=== PATIENT | female | born 2000 | race Caucasian/White ===

== ENCOUNTER 2020-06-05 19:18 | Inpatient (IN) | payer OTHER, SELFPAY ==
[2020-06-05] VITALS (24 sets, daily range): BP systolic 125–161; BP diastolic 74–116; PULSE 66–89
[2020-06-05 11:09] LABS: Basophils Percent Auto 0.6 % (0.2-1.2); Eosinophils Absolute Auto 0.1 K/mm3 (0-0.3); Eosinophils Percent Auto 1.4 % (0-4.4); Hematocrit 31.3 % (37.0-47.0); Hemoglobin 10.3 g/dL (12.0-15.0); Immature Granulocyte Absolute 0.03 K/mm3 (0.00-0.031); Immature Granulocyte Percent A 0.4 % (0-0.5); Lymphocytes Absolute Auto 1.28 K/mm3 (0.9-3.2); Lymphocytes Percent Auto 17.8 % (18.3-44.2); Mean Corpuscular HGB Conc 32.9 g/dl (32-36); Mean Corpuscular Hemoglobin 29.3 pg (26-34); Mean Corpuscular Volume 88.9 fl (80-100); Mean Platelet Volume 12.5 fl (7.4-10.4); Monocytes Absolute Auto 0.5 K/mm3 (0.1-0.6); Monocytes Percent Auto 7.4 % (2.6-8.5); Neutrophils Absolute Auto 5.2 K/mm3 (1.3-6.7); Neutrophils Percent Auto 72.4 % (45.5-73.1); Platelet Count Result 134 k/mm3 (150-375); Red Blood Count 3.52 M/mm3 (4.2-5.4); Red Cell Distribution Width 13.3 % (11.5-14.5); White Blood Count 7.2 K/mm3 (4.5-10.0)
[2020-06-05 11:24] LABS: Alanine Aminotransferase 18 U/L (4-35); Albumin Level 3.2 g/dL (3.5-5.1); Alkaline Phosphatase 120 U/L (38-126); Aspartate Amino Transferase 20 U/L (14-36); Bilirubin,Total < 0.1 mg/dL (0.2-1.3); Blood Urea Nitrogen 13 mg/dL (7-17); Calcium 8.1 mg/dL (8.4-10.2); Carbon Dioxide 22 mmol/L (22-30); Chloride 108 mmol/L (98-107); Estimated Glomerular Filt Rate > 60; Glucose 93 mg/dL (65-105); Potassium 3.7 mmol/L (3.4-5.0); Sodium 136 mmol/L (137-145); Uric Acid 5.7 mg/dL (2.5-7.5)
[2020-06-05 12:33] LABS: Creatinine Urine 290.1 mg/dL; Total Protein Urine Random 9 mg/dL
--- NOTE | 2020-06-05 15:31 | PC.NURSE ---
1300- Spoke with Mandi Cronin CNM, labs reviewed and BP's reviewed. Orders to redraw labs at 6 hours from first draw. WIll evaluate after results come back.
[2020-06-05 16:53] LABS: Basophils Percent Auto 0.5 % (0.2-1.2); Eosinophils Absolute Auto 0.1 K/mm3 (0-0.3); Eosinophils Percent Auto 1.6 % (0-4.4); Hematocrit 31.3 % (37.0-47.0); Hemoglobin 10.3 g/dL (12.0-15.0); Immature Granulocyte Absolute 0.03 K/mm3 (0.00-0.031); Immature Granulocyte Percent A 0.4 % (0-0.5); Lymphocytes Absolute Auto 1.72 K/mm3 (0.9-3.2); Lymphocytes Percent Auto 21.5 % (18.3-44.2); Mean Corpuscular HGB Conc 32.9 g/dl (32-36); Mean Corpuscular Hemoglobin 29.3 pg (26-34); Mean Corpuscular Volume 88.9 fl (80-100); Mean Platelet Volume 12.5 fl (7.4-10.4); Monocytes Absolute Auto 0.7 K/mm3 (0.1-0.6); Monocytes Percent Auto 8.1 % (2.6-8.5); Neutrophils Absolute Auto 5.4 K/mm3 (1.3-6.7); Neutrophils Percent Auto 67.9 % (45.5-73.1); Platelet Count Result 144 k/mm3 (150-375); Red Blood Count 3.52 M/mm3 (4.2-5.4); Red Cell Distribution Width 13.4 % (11.5-14.5)
[2020-06-05 17:06] LABS: Alanine Aminotransferase 19 U/L (4-35); Albumin Level 3.2 g/dL (3.5-5.1); Alkaline Phosphatase 126 U/L (38-126); Aspartate Amino Transferase 21 U/L (14-36); Bilirubin,Total 0.1 mg/dL (0.2-1.3); Blood Urea Nitrogen 12 mg/dL (7-17); Calcium 8.4 mg/dL (8.4-10.2); Carbon Dioxide 23 mmol/L (22-30); Chloride 105 mmol/L (98-107); Estimated Glomerular Filt Rate > 60; Glucose 104 mg/dL (65-105); Potassium 3.5 mmol/L (3.4-5.0); Sodium 132 mmol/L (137-145); Uric Acid 5.5 mg/dL (2.5-7.5)
--- NOTE | 2020-06-05 17:31 | PC.NURSE ---
1706- Spoke with Mandi Cronin CNM, patient lab results reviewed. BPs' increased and patient reports a mild headache increasing. Orders to move patient to L&D at midnight for cervidil induction.
[2020-06-06] VITALS (104 sets, daily range): BP systolic 101–171; BP diastolic 66–116; PULSE 76–145; TEMP 37.1–37.8; O2SAT 97–100; BMI 42.3
--- NOTE | 2020-06-06 00:49 | LDADM ---
This patient, Jeferson Patel, was admitted to Labor/Delivery/Recovery 104 on 06/05/20 at 19:18. Plans for labor, pain management and were discussed with patient. Patient/family oriented to hospital policies and general routines including ID bracelet, bed and alarms, visiting hours, pain management, procedures, bathroom and other care routines, personal items, smoking policy, room service/diet and guest tray routines, infant security routines, and visiting hours. Patient/Family are encouraged to report perceived risks to care and to ask questions if they do not understand what they are told or what they should do. See OBIX for further documentation.
[2020-06-06] MEDS: DINOPROSTONE 10 MG VAG INSERT VAGINAL (01:00)
--- NOTE | 2020-06-06 02:33 | WPDANESEPP ---
Anes - Eval Pre Procedure Procedure: labor epidural Date/Time: 06/06/20 02:33 Surgeon: omi Pre Op Diagnosis: Hip Evaluation Patient Data Age: 20 Gender: F Height: 1.7 m Weight: 122.75 kg Last Vital Signs Temp 37.3 C 06/06/20 00:01 Pulse 81 06/06/20 02:31 BP 133/79 06/06/20 02:31 Allergies Allergy/AdvReac Type Severity Reaction Status Date / Time Penicillins Allergy Mild Verified 05/08/18 19:34 amoxicillin AdvReac Unknown Other Verified 10/23/18 19:18 Home Medications Medication Instructions Recorded Confirmed Type No Home Medications 06/05/20 06/05/20 History Laboratory Tests 06/05/20 06/05/20 06/05/20 10:57 10:57 10:57 WBC 7.2 K/mm3 K/mm3 (4.5-10.0) RBC 3.52 M/mm3 L M/mm3 (4.2-5.4) Hgb 10.3 g/dL L g/dL (12.0-15.0) Hct 31.3 % L % (37.0-47.0) MCV 88.9 fl fl (80-100) MCH 29.3 pg pg (26-34) MCHC 32.9 g/dl g/dl (32-36) RDW 13.3 % % (11.5-14.5) Plt Count 134 k/mm3 L k/mm3 (150-375) MPV 12.5 fl H fl (7.4-10.4) Immature Gran % (Auto) 0.4 % % (0-0.5) Neut % (Auto) 72.4 % % (45.5-73.1) Lymph % (Auto) 17.8 % L % (18.3-44.2) [place] % (Auto) 7.4 % % (2.6-8.5) Eos % (Auto) 1.4 % % (0-4.4) Baso % (Auto) 0.6 % % (0.2-1.2) Lymph # (Auto) 1.28 K/mm3 K/mm3 (0.9-3.2) [place] # (Auto) 0.5 K/mm3 K/mm3 (0.1-0.6) Eos # (Auto) 0.1 K/mm3 K/mm3 (0-0.3) Baso # (Auto) 0.0 K/mm3 K/mm3 (0.0-0.1) Abs Immat Gran (auto) 0.03 K/mm3 K/mm3 (0.00-0.031) Absolute Neuts (auto) 5.2 K/mm3 K/mm3 (1.3-6.7) Absolute Nucleated RBC 0.0 K/mm3 K/mm3 (0.0-0.012) Nucleated RBC % 0.0 % % (0.0-0.2) Sodium 136 mmol/L L mmol/L (137-145) Potassium 3.7 mmol/L mmol/L (3.4-5.0) Chloride 108 mmol/L H mmol/L (98-107) Carbon Dioxide 22 mmol/L mmol/L (22-30) BUN 13 mg/dL mg/dL (7-17) Creatinine 0.60 mg/dL L mg/dL (0.7-1.0) Estim Creat Clear Calc Not Reportable Estimated GFR > 60 (59 - ) Glucose 93 mg/dL mg/dL (65-105) Uric Acid 5.7 mg/dL mg/dL (2.5-7.5) Calcium 8.1 mg/dL L mg/dL (8.4-10.2) Total Bilirubin < 0.1 mg/dL L mg/dL (0.2-1.3) AST 20 U/L U/L (14-36) ALT 18 U/L U/L (4-35) Alkaline Phosphatase 120 U/L U/L (38-126) Total Protein 6.0 g/dL L g/dL (6.3-8.2) Albumin 3.2 g/dL L g/dL (3.5-5.1) U Random Total Protein 9 mg/dL mg/dL Urine Creatinine 290.1 mg/dL mg/dL RPR Blood Type Antibody Screen 06/05/20 06/05/20 06/06/20 16:45 16:46 01:04 WBC 8.0 K/mm3 K/mm3 (4.5-10.0) RBC 3.52 M/mm3 L M/mm3 (4.2-5.4) Hgb 10.3 g/dL L g/dL (12.0-15.0) Hct 31.3 % L % (37.0-47.0) MCV 88.9 fl fl (80-100) MCH 29.3 pg pg (26-34) MCHC 32.9 g/dl g/dl (32-36) RDW 13.4 % % (11.5-14.5) Plt Count 144 k/mm3 L k/mm3 (150-375) MPV 12.5 fl H fl (7.4-10.4) Immature Gran % (Auto) 0.4 % % (0-0.5) Neut % (Auto) 67.9 % % (45.5-73.1) Lymph % (Auto) 21.5 % % (18.3-44.2) [place] % (Auto) 8.1 % % (2.6-8.5) Eos % (Auto) 1.6 % % (0-4.4) Baso % (Auto) 0.5 % % (0.2-1.2) Lymph # (Auto) 1.72 K/mm3 K/mm3 (0.9-3.2) [place] # (Auto) 0.7 K/mm3 H K/mm3 (0.1-0.6) Eos # (Auto) 0.1 K/mm3 K/mm3 (0-0.3) Baso # (Auto) 0.0 K/mm3 K/mm3 (0.0-0.1) Abs Immat Gran (auto) 0.03 K/mm3 K/mm3 (0.00-0.031) Absolute Neuts (auto) 5.4 K/mm3 K/mm3 (1.3-6.7) Absolute Nucleated RBC 0.0 K/mm3 K/mm3 (0.0-0.012) Nucleated R
[2020-06-06 03:58] LABS: Add Urine Microscopic? YES; Appearance Urine Turbid (Clear); Bacteria Urine Trace /hpf; Bilirubin Urine Negative (Negative); Blood Urine 2+ (Negative); Color Urine Yellow (Yellow); Glucose Urine UA Negative (Negative); Ketones Urine Negative (Negative); Leukocyte Esterase Ur Trace LEU/UL (NEGATIVE); Mucus Urine Few /lpf; Nitrate Urine Negative (Negative); Protein Urine Negative (Negative); Specific Grav Ur 1.018 (1.001-1.035); Squamous Epithelial Cell Urine Occasional /hpf (Few); Urobilinogen Urine Negative mg/dL (<2.0)
[2020-06-06] MEDS: LACTATED RINGERS 1,000 ML 125 ML IV CONT ×2 (06:53→19:37)
[2020-06-06] MEDS: CLINDAMYCIN 900 MG/NS 50 ML 900 MG/50 ML PIGGYBACK 50 MG IVPB ×2 (06:53→14:53)
[2020-06-06 07:25] LABS: Rapid Plasma Reagin Non-Reactive (NonReactive)
--- NOTE | 2020-06-06 07:25 | WPDOBADMIT ---
Obstetrics - Admit Note Admission Note: record reviewed. No pertinent additions to the history and/or any subsequent changes in the physical findings that are not consistent with the expected course of the were found. Pt admitted to LD last night with diagnosis of GHTN, cervadil placed around 0100. Pt susi well Additions to the history and/or subsequent changes in the physical findings follow. None.
[2020-06-06] MEDS: FAMOTIDINE 20 MG/2 ML VIAL IV PUSH (12:41)
[2020-06-06] MEDS: OXYTOCIN 30 UNITS/NS 500 ML 30 UNITS/500 ML BAG 6 UNITS IV CONT (13:33)
[2020-06-06 16:33] LABS: Basophils Percent Auto 0.2 % (0.2-1.2); Eosinophils Absolute Auto 0.1 K/mm3 (0-0.3); Eosinophils Percent Auto 0.7 % (0-4.4); Hematocrit 33.1 % (37.0-47.0); Immature Granulocyte Absolute 0.02 K/mm3 (0.00-0.031); Immature Granulocyte Percent A 0.2 % (0-0.5); Lymphocytes Absolute Auto 1.37 K/mm3 (0.9-3.2); Lymphocytes Percent Auto 15.4 % (18.3-44.2); Mean Corpuscular HGB Conc 33.2 g/dl (32-36); Mean Corpuscular Hemoglobin 29.4 pg (26-34); Mean Corpuscular Volume 88.5 fl (80-100); Mean Platelet Volume 12.4 fl (7.4-10.4); Monocytes Absolute Auto 0.6 K/mm3 (0.1-0.6); Monocytes Percent Auto 7.1 % (2.6-8.5); Neutrophils Absolute Auto 6.8 K/mm3 (1.3-6.7); Neutrophils Percent Auto 76.4 % (45.5-73.1); Platelet Count Result 174 k/mm3 (150-375); Red Blood Count 3.74 M/mm3 (4.2-5.4); Red Cell Distribution Width 13.4 % (11.5-14.5); White Blood Count 8.9 K/mm3 (4.5-10.0)
[2020-06-06 16:44] LABS: Uric Acid 5.3 mg/dL (2.5-7.5)
[2020-06-06 17:29] LABS: Alanine Aminotransferase 22 U/L (4-35); Albumin Level 3.5 g/dL (3.5-5.1); Alkaline Phosphatase 144 U/L (38-126); Aspartate Amino Transferase 25 U/L (14-36); Bilirubin,Total 0.2 mg/dL (0.2-1.3); Blood Urea Nitrogen 9 mg/dL (7-17); Calcium 8.3 mg/dL (8.4-10.2); Carbon Dioxide 21 mmol/L (22-30); Chloride 107 mmol/L (98-107); Estimated CRCL calculation 203 ml/min; Estimated Glomerular Filt Rate > 60; Glucose 80 mg/dL (65-105); Sodium 134 mmol/L (137-145)
--- NOTE | 2020-06-06 18:01 | PM.OBPNLAB ---
Pain Control Date/time seen: 06/06/20 18:01 FHR category 1, SVE 3/80/-3, AROm large amount of clear odorless fluid BP elevated, plan labetalol if severe range and then if persists plan magnesium sulfate, consulted with Dr. Cast.
[2020-06-06] MEDS: AMPICILLIN 2 GM/NS 100 ML 2 GM/100 ML BAG IVPB (18:36)
--- NOTE | 2020-06-06 22:02 | PM.OBTRLD ---
OB - Triage/Final Diagnosis Visit Information Date of evaluation: 06/06/20 Evaluation Laboratory results: Laboratory Tests 06/05/20 06/05/20 06/05/20 10:57 10:57 10:57 WBC 7.2 RBC 3.52 L Hgb 10.3 L Hct 31.3 L MCV 88.9 MCH 29.3 MCHC 32.9 RDW 13.3 Plt Count 134 L MPV 12.5 H Immature Gran % (Auto) 0.4 Neut % (Auto) 72.4 Lymph % (Auto) 17.8 L [place] % (Auto) 7.4 Eos % (Auto) 1.4 Baso % (Auto) 0.6 Lymph # (Auto) 1.28 [place] # (Auto) 0.5 Eos # (Auto) 0.1 Baso # (Auto) 0.0 Abs Immat Gran (auto) 0.03 Absolute Neuts (auto) 5.2 Absolute Nucleated RBC 0.0 Nucleated RBC % 0.0 Sodium Potassium Chloride Carbon Dioxide BUN Creatinine Estim Creat Clear Calc Estimated GFR Glucose Uric Acid Calcium Total Bilirubin AST ALT Alkaline Phosphatase Total Protein Albumin Urine Color Yellow Urine Appearance Turbid H Urine pH 5.0 Ur Specific [place] 1.018 Urine Protein Negative Urine Glucose (UA) Negative Urine Ketones Negative Ur Blood (Man) 2+ H Urine Nitrate Negative Urine Bilirubin Negative Urine Urobilinogen Negative Ur Leukocyte Esterase Trace H Urine RBC 3-5 H Urine WBC 4-6 H Ur Squamous Epith Cells Occasional Urine Bacteria Trace Urine Mucus Few H U Random Total Protein 9 Urine Creatinine 290.1 RPR Blood Type Antibody Screen 06/05/20 06/05/20 06/05/20 10:57 16:45 16:46 WBC 8.0 RBC 3.52 L Hgb 10.3 L Hct 31.3 L MCV 88.9 MCH 29.3 MCHC 32.9 RDW 13.4 Plt Count 144 L MPV 12.5 H Immature Gran % (Auto) 0.4 Neut % (Auto) 67.9 Lymph % (Auto) 21.5 [place] % (Auto) 8.1 Eos % (Auto) 1.6 Baso % (Auto) 0.5 Lymph # (Auto) 1.72 [place] # (Auto) 0.7 H Eos # (Auto) 0.1 Baso # (Auto) 0.0 Abs Immat Gran (auto) 0.03 Absolute Neuts (auto) 5.4 Absolute Nucleated RBC 0.0 Nucleated RBC % 0.0 Sodium 136 L 132 L Potassium 3.7 3.5 Chloride 108 H 105 Carbon Dioxide 22 23 BUN 13 12 Creatinine 0.60 L 0.60 L Estim Creat Clear Calc Not Reportable Not Reportable Estimated GFR > 60 > 60 Glucose 93 104 Uric Acid 5.7 5.5 Calcium 8.1 L 8.4 Total Bilirubin < 0.1 L 0.1 L AST 20 21 ALT 18 19 Alkaline Phosphatase 120 126 Total Protein 6.0 L 6.0 L Albumin 3.2 L 3.2 L Urine Color Urine Appearance Urine pH Ur Specific [place] Urine Protein Urine Glucose (UA) Urine Ketones Ur Blood (Man) Urine Nitrate Urine Bilirubin Urine Urobilinogen Ur Leukocyte Esterase Urine RBC Urine WBC Ur Squamous Epith Cells Urine Bacteria Urine Mucus U Random Total Protein Urine Creatinine RPR Blood Type Antibody Screen 06/06/20 06/06/20 06/06/20 01:04 01:04 16:28 WBC RBC Hgb Hct MCV MCH MCHC RDW Plt Count MPV Immature Gran % (Auto) Neut % (Auto) Lymph % (Auto) [place] % (Auto) Eos % (Auto) Baso % (Auto) Lymph # (Auto) [place] # (Auto) Eos # (Auto) Baso # (Auto) Abs Immat Gran (auto) Absolute Neuts (auto) Absolute Nucleated RBC Nucleated RBC % Sodium 134 L Potassium 4.0 Chloride 107 Carbon Dioxide 21 L BUN 9 Creatinine 0.50 L Estim Creat Clear Calc 203 Estimated GFR > 60 Glucose 80 Uric Acid Calcium 8.3 L Total Bilirubin 0.2 AST 25 ALT 22 Alkaline Phosphatase 144 H Total Protein 6.0 L Albumin 3.5 Urine Color Urine Appearance Urine pH Ur Specific [place] Urine Protein Urine Glucose (UA) Urine Ketones Ur Blood (Man) Urine Nitrate Urine Bilirubin Urine Urobilinogen Ur Leukocyte Esterase Urine RBC Urine WBC Ur Squamous Epith Cells Urine Bacteria Urine Mucus U Random Total Protein
--- NOTE | 2020-06-06 22:03 | PM.OBPRVD ---
OB - Delivery Note Procedure Delivery date: 06/06/20 Procedure: vaginal delivery events: Induced HTN Intrapartal events: None and Febrile Induction method: AROM and per pitocin protocol Delivery monitor: external FHT and external uterine Route of delivery: Laceration description: Perineal - 1st Degree Delivery repair: vicryl Specimen: Yes Estimated blood loss (mL): 100 Anesthesia type: Epidural Disposition: other () Baby Date of : 06/06/20 Time of : 21:48 Weeks of gestation at delivery: 37 Infant gender: Male Weight (pounds): 7 Weight (ounces): 1 presentation: vertex position: Left Occiput Anterior Placenta delivery description: Spontaneous cord vessel description: 3 Vessels and Clamped/Cut score one minute: 8 score five minutes: 9 Narrative: baby skin to skin, mother and baby stable condition
[2020-06-06] MEDS: OXYTOCIN 30 UNITS/NS 500 ML 30 UNITS/500 ML BAG 125 UNITS IV CONT (22:19)
[2020-06-07 00:01] VITALS: BP 149/89; PULSE 102
[2020-06-07 00:15] VITALS: BP 150/91; PULSE 97
[2020-06-07] MEDS: WITCH HAZEL 40 PADS 1 PAD TOPICAL (00:24)
[2020-06-07] MEDS: IBUPROFEN 600 MG TABLET PO ×3 (00:24→20:02)
[2020-06-07] MEDS: BENZOCAINE 20% AER SPR (*SP) 56 GM CAN 1 SPRAY TOPICAL (00:25)
[2020-06-07 00:45] VITALS: BP 148/84; PULSE 98; RESP 14; TEMP 37.4; O2SAT 97
[2020-06-07 05:34] LABS: Hemoglobin 10.2 g/dL (12.0-15.0)
[2020-06-07] MEDS: MULTIVIT/MIN/PREN/FOL AC/IRON TABLET 1 TAB PO (07:37)
[2020-06-07] MEDS: DOCUSATE SODIUM 100 MG CAPSULE PO (07:38)
--- NOTE | 2020-06-07 08:05 | PM.OBPNVD ---
OB - PN: Subj Subjective Date/time seen: 06/07/20 08:05 Pt denies h/a, v/d, or e/p. OB - PN: Obj Data Labs CBC & Chem 7: 06/07/20 04:33 06/06/20 16:28 Labs: Laboratory Results - last 24 hr 06/06/20 06/06/20 06/06/20 16:28 16:28 16:28 WBC 8.9 RBC 3.74 L Hgb 11.0 L Hct 33.1 L MCV 88.5 MCH 29.4 MCHC 33.2 RDW 13.4 Plt Count 174 MPV 12.4 H Immature Gran % (Auto) 0.2 Neut % (Auto) 76.4 H Lymph % (Auto) 15.4 L [place] % (Auto) 7.1 Eos % (Auto) 0.7 Baso % (Auto) 0.2 Lymph # (Auto) 1.37 [place] # (Auto) 0.6 Eos # (Auto) 0.1 Baso # (Auto) 0.0 Abs Immat Gran (auto) 0.02 Absolute Neuts (auto) 6.8 H Absolute Nucleated RBC 0.0 Nucleated RBC % 0.0 Sodium 134 L Potassium 4.0 Chloride 107 Carbon Dioxide 21 L BUN 9 Creatinine 0.50 L Estim Creat Clear Calc 203 Estimated GFR > 60 Glucose 80 Uric Acid 5.3 Calcium 8.3 L Total Bilirubin 0.2 AST 25 ALT 22 Alkaline Phosphatase 144 H Total Protein 6.0 L Albumin 3.5 06/07/20 04:33 WBC RBC Hgb 10.2 L Hct 31.0 L MCV MCH MCHC RDW Plt Count MPV Immature Gran % (Auto) Neut % (Auto) Lymph % (Auto) [place] % (Auto) Eos % (Auto) Baso % (Auto) Lymph # (Auto) [place] # (Auto) Eos # (Auto) Baso # (Auto) Abs Immat Gran (auto) Absolute Neuts (auto) Absolute Nucleated RBC Nucleated RBC % Sodium Potassium Chloride Carbon Dioxide BUN Creatinine Estim Creat Clear Calc Estimated GFR Glucose Uric Acid Calcium Total Bilirubin AST ALT Alkaline Phosphatase Total Protein Albumin OB - PN A/P Plan day: 1 Plan: routine care Time Spent With Patient Time: Total time spent is greater than 50% in coordination of care (as documented) at patient's floor/unit and/or counseling patient: Review of Systems Review of Systems: All systems reviewed & are unremarkable except as noted in HPI and below Exam Narrative: Exam Narrative: Fundus firm and vaginal flow controlled. DTR normal. 3+ lower ext edema. Const: General: comfortable Chest: Breast/axilla inspection: normal inspection of the breasts Resp: Effort & Inspection: normal respiratory effort Psych: Appearance: grossly normal Affect: normal affect Attitude: cooperative Judgement: Good judgement present (Psych)
[2020-06-07 08:30] VITALS: BP 140/89; PULSE 84; RESP 18; TEMP 37; O2SAT 98
--- NOTE | 2020-06-07 09:00 | WPDANLDPN2 ---
Anes-Prog Note L&D Date/Time: 06/07/20 09:00 Comfortable throughout: labor and delivery Neuraxial method: epidural Epidural/Spinal procedure site: clean & non-tender Neuro status: Neuro function grossly intact. Cardiovascular status: normal Respiratory status: normal Airway patency: baseline Mental status: baseline Post-Op hydration status: normal Vital Signs: Last Vital Signs Temp 99.3 F 06/07/20 00:45 Pulse 98 06/07/20 00:45 Resp 14 06/07/20 00:45 BP 148/84 H 06/07/20 00:45 Pulse Ox 97 06/07/20 00:45 I/O: Intake & Output 06/06/20 06/07/20 06/07/20 23:59 07:59 15:59 Intake Total 900 500 Output Total 148 Balance 900 352 Post-procedural complaints: none Patient feedback: Patient satisfied with anesthetic care.
--- NOTE | 2020-06-07 13:30 | PC.NURSE ---
Mother called out for assist with feeding. Mother reports infant has had difficulties with latching, she used a shield a few times and has a tight frenulum. Infant is now sleepy. Reviewed infant feeding cues, frequencies, duration of feedings, feeding elimination flow sheet, and signs of adequate intake. Demonstrated stimulation techniques to wake infant for feeding. Assisted with infant to breast. Reviewed positioning/alignment in football , holding breast in C hold and guided asymmetrical latch on. Discussed rational for each. Several attempts before was able to latch correctly. Infant nursed eagerly, with steady draws and occasional swallowing noted. Reviewed signs of a correct latch, effective nursing and suck swallow ratio. appears to be able to latch deeply with tight frenulum for this feeding. Demonstrated how to adjust latch more deeply while feeding. Infant was able to maintain latch without discomfort to mother. Nipple care reviewed. Suggested to continue to stimulate to keep infant awake and effectively feeding for increased intake and assisting maintaining deep latch. Instructed mother to call out for RN assistance if she is unable to latch for feeding or she has discomfort with nursing. Instructed feeding should be initiated three hours from start of last feeding or if feeding cues are noted before. Mother voiced understanding of information shared.
[2020-06-07 20:05] VITALS: BP 155/96; PULSE 84; RESP 14; TEMP 36.8; O2SAT 100
[2020-06-08 07:24] VITALS: BP 155/88; PULSE 91; RESP 16; TEMP 37.1; O2SAT 99
[2020-06-08] MEDS: MULTIVIT/MIN/PREN/FOL AC/IRON TABLET 1 TAB PO (07:25)
[2020-06-08] MEDS: DOCUSATE SODIUM 100 MG CAPSULE PO ×2 (07:25→16:15)
[2020-06-08] MEDS: ACETAMINOPHEN 325 MG TABLET 650 MG PO ×2 (07:26→16:16)
[2020-06-08] MEDS: IBUPROFEN 600 MG TABLET PO ×2 (07:27→16:16)
--- NOTE | 2020-06-08 07:55 | P.PNOB_ITS ---
OB - PN: Subj Subjective Date/time seen: 06/08/20 07:55 OB - PN: Obj Data Labs CBC & Chem 7: 06/07/20 04:33 06/06/20 16:28 Labs: Laboratory Results - last 24 hr 06/05/20 06/05/20 06/06/20 16:45 16:46 16:28 WBC 8.0 8.9 RBC 3.52 L 3.74 L Hgb 10.3 L 11.0 L Hct 31.3 L 33.1 L MCV 88.9 88.5 MCH 29.3 29.4 MCHC 32.9 33.2 RDW 13.4 13.4 Plt Count 144 L 174 MPV 12.5 H 12.4 H Immature Gran % (Auto) 0.4 0.2 Neut % (Auto) 67.9 76.4 H Lymph % (Auto) 21.5 15.4 L [place] % (Auto) 8.1 7.1 Eos % (Auto) 1.6 0.7 Baso % (Auto) 0.5 0.2 Lymph # (Auto) 1.72 1.37 [place] # (Auto) 0.7 H 0.6 Eos # (Auto) 0.1 0.1 Baso # (Auto) 0.0 0.0 Abs Immat Gran (auto) 0.03 0.02 Absolute Neuts (auto) 5.4 6.8 H Absolute Nucleated RBC 0.0 0.0 Nucleated RBC % 0.0 0.0 Sodium 132 L Potassium 3.5 Chloride 105 Carbon Dioxide 23 BUN 12 Creatinine 0.60 L Estimated GFR > 60 Glucose 104 Uric Acid 5.5 Calcium 8.4 Total Bilirubin 0.1 L AST 21 ALT 19 Alkaline Phosphatase 126 Total Protein 6.0 L Albumin 3.2 L OB - PN A/P Plan day: 2 Plan: routine care Comments: BP remain elevated. Check labs. Time Spent With Patient Time: Total time spent is greater than 50% in coordination of care (as documented) at patient's floor/unit and/or counseling patient: Review of Systems Review of Systems: Narrative: Pt feeling well. Denies h/a, v/d, or e/p. All systems reviewed & are unremarkable except as noted in HPI and below Exam Narrative: Exam Narrative: Fundus firm and vaginal flow controlled. Lower ext edema 2+ and improving. Reflexes normal. Const: General: comfortable Chest: Breast/axilla inspection: normal inspection of the breasts Resp: Effort & Inspection: normal respiratory effort Cardio: Rate: regular rate GI: Auscultation: normal bowel sounds Psych: Appearance: grossly normal Affect: normal affect Attitude: cooperative Judgement: Good judgement present (Psych)
[2020-06-08 09:14] LABS: Hematocrit 28.9 % (37.0-47.0); Hemoglobin 9.5 g/dL (12.0-15.0); Immature Platelet Fraction Pct 7.3 % (0.9-11.2); Mean Corpuscular HGB Conc 32.9 g/dl (32-36); Mean Corpuscular Hemoglobin 29.6 pg (26-34); Mean Platelet Volume 11.8 fl (7.4-10.4); Platelet Count Result 133 k/mm3 (150-375); Red Blood Count 3.21 M/mm3 (4.2-5.4); Red Cell Distribution Width 13.6 % (11.5-14.5); White Blood Count 6.2 K/mm3 (4.5-10.0)
[2020-06-08 09:24] LABS: Alanine Aminotransferase 24 U/L (4-35); Albumin Level 3.2 g/dL (3.5-5.1); Alkaline Phosphatase 113 U/L (38-126); Aspartate Amino Transferase 28 U/L (14-36); Bilirubin,Total 0.2 mg/dL (0.2-1.3); Blood Urea Nitrogen 7 mg/dL (7-17); Calcium 8.7 mg/dL (8.4-10.2); Carbon Dioxide 23 mmol/L (22-30); Chloride 107 mmol/L (98-107); Estimated CRCL calculation 173 ml/min; Estimated Glomerular Filt Rate > 60; Glucose 115 mg/dL (65-105); Potassium 3.6 mmol/L (3.4-5.0); Sodium 136 mmol/L (137-145); Uric Acid 5.9 mg/dL (2.5-7.5)
--- NOTE | 2020-06-08 10:05 | PC.NURSE ---
Mother called out for assist with feeding. Mother reports tenderness during feedings. is now sleepy after circumcision and is concerned is getting enough. Reviewed feeding cues, frequencies, duration of feedings, feeding elimination flow sheet, and signs of adequate intake. Demonstrated stimulation techniques to wake for feeding. Assisted with infant to breast. Reviewed positioning/alignment in cross cradle, holding breast in U hold and guided asymmetrical latch on. Discussed rational for each. was able to latch correctly. made little effort to suckle and nurse. Attempt for 15 minutes. Suggested skin to skin and attempt again in 30 min.
--- NOTE | 2020-06-08 10:40 | PC.NURSE ---
Assisted with infant to breast. Infant was able to latch correctly. nursed sleepily for short bursts, mother was able to stimulate into bursts of eagerly suckling. Advised mother to continue with feeding for 30 minutes and report the times she feels infant nurses. Requested mother call out in 30 minutes to report to primary RN.
[2020-06-08 15:40] LABS: Basophils Absolute Auto 0.1 K/mm3 (0.0-0.1); Basophils Percent Auto 0.8 % (0.2-1.2); Eosinophils Absolute Auto 0.2 K/mm3 (0-0.3); Eosinophils Percent Auto 2.4 % (0-4.4); Hematocrit 29.3 % (37.0-47.0); Hemoglobin 9.7 g/dL (12.0-15.0); Immature Granulocyte Absolute 0.03 K/mm3 (0.00-0.031); Immature Granulocyte Percent A 0.5 % (0-0.5); Lymphocytes Absolute Auto 1.81 K/mm3 (0.9-3.2); Lymphocytes Percent Auto 27.3 % (18.3-44.2); Mean Corpuscular HGB Conc 33.1 g/dl (32-36); Mean Corpuscular Hemoglobin 29.6 pg (26-34); Mean Corpuscular Volume 89.3 fl (80-100); Mean Platelet Volume 12.1 fl (7.4-10.4); Monocytes Absolute Auto 0.4 K/mm3 (0.1-0.6); Monocytes Percent Auto 6.6 % (2.6-8.5); Neutrophils Absolute Auto 4.1 K/mm3 (1.3-6.7); Neutrophils Percent Auto 62.4 % (45.5-73.1); Platelet Count Result 154 k/mm3 (150-375); Red Blood Count 3.28 M/mm3 (4.2-5.4); Red Cell Distribution Width 13.6 % (11.5-14.5); White Blood Count 6.6 K/mm3 (4.5-10.0)
[2020-06-08 15:50] LABS: Alanine Aminotransferase 24 U/L (4-35); Albumin Level 3.4 g/dL (3.5-5.1); Alkaline Phosphatase 110 U/L (38-126); Aspartate Amino Transferase 27 U/L (14-36); Bilirubin,Total < 0.1 mg/dL (0.2-1.3); Blood Urea Nitrogen 8 mg/dL (7-17); Calcium 8.3 mg/dL (8.4-10.2); Carbon Dioxide 23 mmol/L (22-30); Chloride 107 mmol/L (98-107); Estimated CRCL calculation 173 ml/min; Estimated Glomerular Filt Rate > 60; Glucose 94 mg/dL (65-105); Sodium 137 mmol/L (137-145); Uric Acid 5.7 mg/dL (2.5-7.5)
[2020-06-08 16:15] VITALS: BP 151/104; PULSE 80
[2020-06-08 20:10] VITALS: BP 152/94; PULSE 90; RESP 18; TEMP 37.1; O2SAT 99
[2020-06-09] MEDS: ACETAMINOPHEN 325 MG TABLET 650 MG PO (00:27)
[2020-06-09] MEDS: IBUPROFEN 600 MG TABLET PO ×2 (00:27→08:50)
--- NOTE | 2020-06-09 07:43 | PM.OBPNVD ---
OB - PN: Subj Subjective Date/time seen: 06/09/20 07:43 Patient comments: no complaints baby status: doing well OB - PN: Obj Data Labs CBC & Chem 7: 06/08/20 15:30 06/08/20 15:30 Labs: Laboratory Results - last 24 hr 06/08/20 06/08/20 06/08/20 09:06 09:06 15:30 WBC 6.2 6.6 RBC 3.21 L 3.28 L Hgb 9.5 L 9.7 L Hct 28.9 L 29.3 L MCV 90.0 89.3 MCH 29.6 29.6 MCHC 32.9 33.1 RDW 13.6 13.6 Plt Count 133 L 154 MPV 11.8 H 12.1 H Immature Gran % (Auto) 0.5 Neut % (Auto) 62.4 Lymph % (Auto) 27.3 [place] % (Auto) 6.6 Eos % (Auto) 2.4 Baso % (Auto) 0.8 Lymph # (Auto) 1.81 [place] # (Auto) 0.4 Eos # (Auto) 0.2 Baso # (Auto) 0.1 Abs Immat Gran (auto) 0.03 Absolute Neuts (auto) 4.1 Absolute Nucleated RBC 0.0 Nucleated RBC % 0.0 % Immature Plt Fraction 7.3 Sodium 136 L Potassium 3.6 Chloride 107 Carbon Dioxide 23 BUN 7 Creatinine 0.60 L Estim Creat Clear Calc 173 Estimated GFR > 60 Glucose 115 H Uric Acid 5.9 Calcium 8.7 Total Bilirubin 0.2 AST 28 ALT 24 Alkaline Phosphatase 113 Total Protein 6.0 L Albumin 3.2 L 06/08/20 15:30 WBC RBC Hgb Hct MCV MCH MCHC RDW Plt Count MPV Immature Gran % (Auto) Neut % (Auto) Lymph % (Auto) [place] % (Auto) Eos % (Auto) Baso % (Auto) Lymph # (Auto) [place] # (Auto) Eos # (Auto) Baso # (Auto) Abs Immat Gran (auto) Absolute Neuts (auto) Absolute Nucleated RBC Nucleated RBC % % Immature Plt Fraction Sodium 137 Potassium 4.0 Chloride 107 Carbon Dioxide 23 BUN 8 Creatinine 0.60 L Estim Creat Clear Calc 173 Estimated GFR > 60 Glucose 94 Uric Acid 5.7 Calcium 8.3 L Total Bilirubin < 0.1 L AST 27 ALT 24 Alkaline Phosphatase 110 Total Protein 6.0 L Albumin 3.4 L OB - PN A/P Plan day: 2 Plan: discharge home Comments: some elevated blood pressures, labs stable, plan f/u on friday in office for blood pressure check, precautions to be given, pt has hospital f/u tomorrow Time Spent With Patient Time: Total time spent is greater than 50% in coordination of care (as documented) at patient's floor/unit and/or counseling patient: Review of Systems Review of Systems: All systems reviewed & are unremarkable except as noted in HPI and below Exam Const: General: comfortable Resp: Effort & Inspection: normal respiratory effort Psych: Appearance: grossly normal Affect: normal affect Attitude: cooperative Judgement: Good judgement present (Psych)
[2020-06-09 08:20] VITALS: BP 141/90; PULSE 72; RESP 18; TEMP 36.9; O2SAT 99
[2020-06-09] MEDS: DOCUSATE SODIUM 100 MG CAPSULE PO (08:49)
[2020-06-09] MEDS: POLYSACCHARIDE IRON COMPLEX 150 MG CAPSULE PO (08:49)
[2020-06-09] MEDS: MULTIVIT/MIN/PREN/FOL AC/IRON TABLET 1 TAB PO (08:50)
[2020-06-10 10:19] VITALS: BP 179/110; RESP 20; TEMP 36.6; O2SAT 100
--- NOTE | 2020-06-13 18:02 | PM.OBDSVD ---
DS: Admitting Diagnosis Admitting Diagnosis Admitting Diagnosis: Encounter for supervision of normal , unspecified, third trimester OB - DS: Summary OB Procedures : None OB Procedures Intrapartum: Spontaneous Vag Delivery OB Procedures: : None Time Spent with Patient Time attestation: Total time spent providing and/or coordinating discharge services: DS: Data Data Completed and Pending Completed studies during hospitalization: Pending at discharge 06/06/20 21:53 Surgical [PTH] Routine Discharge Plan Discharge Attending physician on discharge: Anuj Cast Consulting providers: Heather Cronin ; Leidy Keating Discharging Clinician: Leidy Keating Patient Disposition: Home, Self-Care Activity: pelvic rest Diet: regular Discharge Instructions: Education: Mom and Baby Guide Given to: Patient Follow-Up: Call your delivering provider's office for an appointment to be seen in: Friday06/12/2020 Mom and baby should come to the [facility] for the follow-up appointment. Appointment Date/Time: Friday06/10/2020 at 10:00 am Call [phone] if you are unable to keep your appointment time. BREAST CARE: 1. Wear a snug supportive bra. 2. For engorgement discomfort: Breast Feeding: A. Apply warm moist washcloths B. Express milk as needed to relieve engorgement C. Wear loose clothing 3. For sore nipples: A. Identify correct latch-on B. Apply warm moist washcloths before and after nursing C. Air dry nipples after nursing D. May apply Lansinoh cream to nipples EPISIOTOMY/PERINEAL CARE: 1. Until bleeding stops, use your nas bottle after urinating 2. Change your pad frequently throughout the day 3. You may take sitz baths several times a day (fill your bathtub with warm water and soak for 20 minutes.) Do NOT bathe in the water 4. No tub baths until seen by your physician - You may shower ACTIVITY: 1. Rest as much as possible. 2. Do not exercise or lift anything heavier than your baby (such as laundry or other children.) 3. Avoid stairs or driving as much as possible. 4. Do not put anything into the vagina. No douching, tampons, or sexual activity until seen by physician. NOTIFY PHYSICIAN IF YOU HAVE ANY QUESTIONS OR IF ANY OF THE FOLLOWING SYMPTOMS OCCUR: 1. If your episiotomy or incision becomes red, swollen, or more painful than what you have experienced in the hospital. 2. If your vaginal bleeding becomes foul smelling. 3. If your vaginal bleeding becomes more heavy than a period or if your bleeding changes from pink to bright red. However, you may pass an occasional walnut-sized clot once or twice for the first week . 4. If you experience a sharp, shooting pain in you calves. 5. If you discover a hard, reddened area on your breast or if you experience flu-like symptoms. DIET: 1. Eat regular, well-balanced meals. 2. Drink plenty of fluids daily. If , drink to thirst. Follow-up/Referrals: Leidy Keating CNM [Certified Nurse Route Carrier] - 4 Weeks (f/u on 06/12 in office for blood pressure check) Discharge Medications: New ibuprofen 600 mg Tablet 600 mg PO Q6H PRN (Reason: Cramping) Qty: 30 RF: 0 No Action PNV cmb#95-ferrous fumarate-FA [] 28 mg iron- 800 mcg Tablet 1 tablet PO DAILY RF: 0 labetalol 100 mg Tablet 200 mg PO Q12H 14 Days Qty: 56 RF: 0 Dermoplast (with menthol) 20-0.5 % Aerosol 1 spray topical PRN PRN (Reason: Perineal Discomfort) RF: 0 acetaminophen 500 mg Tablet 1,000 mg PO Q6H PRN (Reason: Pain) RF: 0 Lwf-F-Fafpmz Cream 1 applic topical PRN PRN (Reason: Comfort) RF: 0 Preparation H (Witch Batsheva) 50 % Pads, Medicated 1 pad topical PRN PRN (Reason: Perineal Discomfort) RF: 0 Date of admission: 06/05/20 19:18 Primary Care Provider: Nii,Shirley Watts
== END 2020-06-09 12:20 | disposition home or self-care (01) | DRG 807 ==
LOC: ANHLDR 06-06 00:30 → ANHOB2 06-09 07:48 → ANHLDR 07-19 15:00 → ANHOB2 07-19 15:00 → ANHOBOP 07-19 15:00 → ANHOBPP 07-19 15:00
PROVIDERS: Advanced Practice Midwife; Admitting Provider Obstetrics & Gynecology; PCP Family Medicine; Visit Provider Obstetrics & Gynecology
DX: O13.4 Gestational [pregnancy-induced] hypertension without significant proteinuria, complicating childbirth (principal); Z37.0 Single live birth; Z3A.37 37 weeks gestation of pregnancy; O99.824 Streptococcus B carrier state complicating childbirth; O70.0 First degree perineal laceration during delivery
CPT/HCPCS: 36415; 59025; 80053; 81001; 82570; 84156; 84550; 85014; 85018; 85025; 85027; 85055; 86592; 86850; 86900; 86901; 87086; 87088; 88307; 99199; A9270; J0290; J2590; J2795; J7120

== ENCOUNTER 2020-06-10 10:37 | Observation (INO) | payer OTHER, SELFPAY ==
[2020-06-10] VITALS (58 sets, daily range): BP systolic 128–174; BP diastolic 76–107; PULSE 64–93; RESP 16–22; TEMP 36.6–37; O2SAT 98–100; BMI 39.0
--- NOTE | 2020-06-10 10:55 | OBADM ---
This patient, Jeferson Patel, admitted to the OB room 116 for observation for hypertension at 1036.. Pt had severe hypertension on BP's done at followup appointment. Pt taken to room per wheelchair and allowed to void. Assisted into a gown and bed. Patient/family oriented to hospital policies and general routines including ID bracelet, bed and alarms, visiting hours, pain management, procedures, bathroom and other care routines, personal items, smoking policy, room service/diet, and visiting hours. Patient/Family are encouraged to report perceived risks to care and to ask questions if they do not understand what they are told or what they should do. Ramona FERRERM called to check on pt. Informed I was just now getting her first BP as I was waiting 5 mins from when she got out of the bathroom. CNM informed BP 168/107. Pt denies headache, visual disturbance, epigastric/RUQ pain, but has 2+ pitting edema in lower legs and reflexes are 3+ and no clonus. CNM will call Dr. Cast and call me back with orders.
--- NOTE | 2020-06-10 10:59 | PC.NURSE ---
Ramona Keating CNM called back with orders for Magnesium Sulfate and PO Labetalol
[2020-06-10 11:31] LABS: Basophils Absolute Auto 0.1 K/mm3 (0.0-0.1); Basophils Percent Auto 0.8 % (0.2-1.2); Eosinophils Absolute Auto 0.4 K/mm3 (0-0.3); Hematocrit 33.9 % (37.0-47.0); Hemoglobin 11.2 g/dL (12.0-15.0); Immature Granulocyte Absolute 0.02 K/mm3 (0.00-0.031); Immature Granulocyte Percent A 0.3 % (0-0.5); Immature Platelet Fraction Pct 7.6 % (0.9-11.2); Lymphocytes Absolute Auto 1.29 K/mm3 (0.9-3.2); Lymphocytes Percent Auto 19.4 % (18.3-44.2); Mean Corpuscular Hemoglobin 29.4 pg (26-34); Mean Platelet Volume 11.8 fl (7.4-10.4); Monocytes Absolute Auto 0.4 K/mm3 (0.1-0.6); Monocytes Percent Auto 5.7 % (2.6-8.5); Neutrophils Absolute Auto 4.5 K/mm3 (1.3-6.7); Neutrophils Percent Auto 67.8 % (45.5-73.1); Platelet Count Result 191 k/mm3 (150-375); Red Blood Count 3.81 M/mm3 (4.2-5.4); Red Cell Distribution Width 13.5 % (11.5-14.5); White Blood Count 6.7 K/mm3 (4.5-10.0)
[2020-06-10] MEDS: LABETALOL HCL 100 MG TABLET 200 MG PO ×2 (11:33→22:22)
[2020-06-10 11:42] LABS: Alanine Aminotransferase 42 U/L (4-35); Albumin Level 3.9 g/dL (3.5-5.1); Alkaline Phosphatase 130 U/L (38-126); Aspartate Amino Transferase 41 U/L (14-36); Bilirubin,Total 0.3 mg/dL (0.2-1.3); Blood Urea Nitrogen 10 mg/dL (7-17); Calcium 8.6 mg/dL (8.4-10.2); Carbon Dioxide 22 mmol/L (22-30); Chloride 109 mmol/L (98-107); Estimated Glomerular Filt Rate > 60; Glucose 81 mg/dL (65-105); Sodium 139 mmol/L (137-145); Uric Acid 5.8 mg/dL (2.5-7.5)
[2020-06-10] MEDS: LACTATED RINGERS 1,000 ML 75 ML IV CONT ×2 (11:43→22:29)
[2020-06-10] MEDS: MAGNESIUM SULF 4 GM/WATER100ML 4 GM/100 ML BAG IVPB (11:47)
--- NOTE | 2020-06-10 11:47 | PC.NURSE ---
Baby is also being admitted in room for hyperbilirubinemia and phototherapy.
[2020-06-10] MEDS: MAGNESIUM SULF 20GM/WATER500ML 500 ML 50 MG IV CONT ×2 (12:24→22:23)
--- NOTE | 2020-06-10 13:30 | PC.NURSE ---
Ramona Keating CNM called to check on pt and updated on BP's, and lab results. Informed pt does have some blurred vision since starting the Magnesium Sulfate. Orders received.
--- NOTE | 2020-06-10 17:29 | PC.NURSE ---
Baby at breast.
--- NOTE | 2020-06-10 18:50 | PC.NURSE ---
Patient resting comfortably. Patient denies POST, blurred vision, epigastric pain. Patient denies pain. VSS.
[2020-06-10] MEDS: MULTIVIT/MIN/PREN/FOL AC/IRON TABLET 1 TAB PO (19:33)
[2020-06-10 22:34] LABS: Hematocrit 28.7 % (37.0-47.0); Hemoglobin 9.7 g/dL (12.0-15.0); Mean Corpuscular HGB Conc 33.8 g/dl (32-36); Mean Corpuscular Hemoglobin 29.5 pg (26-34); Mean Corpuscular Volume 87.2 fl (80-100); Mean Platelet Volume 10.9 fl (7.4-10.4); Platelet Count Result 194 k/mm3 (150-375); Red Blood Count 3.29 M/mm3 (4.2-5.4); Red Cell Distribution Width 13.5 % (11.5-14.5); White Blood Count 6.9 K/mm3 (4.5-10.0)
[2020-06-10 22:47] LABS: Alanine Aminotransferase 44 U/L (4-35); Albumin Level 3.4 g/dL (3.5-5.1); Alkaline Phosphatase 107 U/L (38-126); Aspartate Amino Transferase 37 U/L (14-36); Bilirubin,Total < 0.1 mg/dL (0.2-1.3); Blood Urea Nitrogen 11 mg/dL (7-17); Calcium 7.3 mg/dL (8.4-10.2); Carbon Dioxide 25 mmol/L (22-30); Chloride 106 mmol/L (98-107); Estimated CRCL calculation 143 ml/min; Estimated Glomerular Filt Rate > 60; Glucose 99 mg/dL (65-105); Potassium 3.7 mmol/L (3.4-5.0); Sodium 135 mmol/L (137-145)
--- NOTE | 2020-06-10 22:53 | PC.NURSE ---
Updated Ramona Keating CNM on patient lab results. Also updated on maternal assessment and vital signs. Order for repeat labs when magnesium is discontinued.
[2020-06-11] VITALS (17 sets, daily range): BP systolic 122–153; BP diastolic 71–101; PULSE 72–92; RESP 16–19; TEMP 36.4–36.6
[2020-06-11] MEDS: IBUPROFEN 600 MG TABLET PO (04:26)
--- NOTE | 2020-06-11 07:21 | PM.IMHP ---
H&P: HPI History of Present Illness Chief complaint: Hypertension Narrative: Jeferson Patel is a 20 year old female who presented for pp follow up day 3, vaginal delivery, and had elevated bp. after 2 severe range blood pressures, pt admitted and given 200mg labetalol po and then 4gm magnesium sulfate load/2gm hour. labs done and PLT wnl, AST and ALT elevated. Dr. Cast aware and orders placed. pt currently has normotensive blood pressures and is asymptomatic for nelson, visual changes and epigastric pain. rpt labs this am stable Review of Systems Review of Systems: All systems reviewed & are unremarkable except as noted in HPI and below Constitutional: Constitutional: Reports as per HPI Eyes: Eyes: Reports blurry vision [facility] Past Medical History Medical History (Updated 06/06/20 @ 02:34 by Paulina Hale CRNA) PIH ( induced hypertension) Social History Social History Smoking status: Former smoker Second hand tobacco smoke exposure: No Substance use: never Gender identity (if verbalized by the patient): Female Spiritual care concerns: No Meds Home Medications and Allergies Home Medications Medication Instructions Recorded Confirmed Type ibuprofen 600 mg PO Q6H PRN #30 tablet 06/09/20 06/10/20 Rx PNV cmb#95-ferrous fumarate-FA 1 tablet PO DAILY 06/10/20 06/10/20 History [] Allergies Allergy/AdvReac Type Severity Reaction Status Date / Time No Known Allergies Allergy Verified 06/10/20 13:45 Vital Signs Vital Signs - 24 hr 06/10/20 10:55 06/10/20 11:04 06/10/20 11:08 Temperature Pulse Rate 75 79 Respiratory Rate Blood Pressure 168/107 H 174/107 H Blood Pressure [Right Arm] 168/107 H Pulse Oximetry 99 100 06/10/20 11:13 06/10/20 11:18 06/10/20 11:23 Temperature Pulse Rate Respiratory Rate Blood Pressure Blood Pressure [Right Arm] Pulse Oximetry 99 100 100 06/10/20 11:28 06/10/20 11:30 06/10/20 11:33 Temperature 37.0 C Pulse Rate 75 80 Respiratory Rate Blood Pressure 171/98 H Blood Pressure [Right Arm] Pulse Oximetry 100 100 06/10/20 11:45 06/10/20 11:47 06/10/20 11:50 Temperature Pulse Rate 69 Respiratory Rate 16 Blood Pressure 154/97 H Blood Pressure [Right Arm] Pulse Oximetry 99 100 06/10/20 11:55 06/10/20 12:00 06/10/20 12:05 Temperature Pulse Rate 68 Respiratory Rate Blood Pressure 141/90 H Blood Pressure [Right Arm] Pulse Oximetry 100 99 99 06/10/20 12:10 06/10/20 12:15 06/10/20 12:20 Temperature Pulse Rate 72 Respiratory Rate Blood Pressure 137/86 Blood Pressure [Right Arm] Pulse Oximetry 99 98 100 06/10/20 12:24 06/10/20 12:25 06/10/20 12:30 Temperature Pulse Rate 68 Respiratory Rate 16 Blood Pressure 139/89 Blood Pressure [Right Arm] Pulse Oximetry 99 98 06/10/20 12:35 06/10/20 12:40 06/10/20 13:00 Temperature 36.6 C Pulse Rate 76 Respiratory Rate 16 Blood Pressure 144/88 H Blood Pressure [Right Arm] Pulse Oximetry 100 100 06/10/20 14:16 06/10/20 14:21 06/10/20 14:26 Temperature Pulse Rate 73 Respiratory Rate 18 Blood Pressure 150/96 H Blood Pressure [Right Arm] Pulse Oximetry 99 99 99 06/10/20 14:31 06/10/20 14:36 06/10/20 14:41 Temperature Pulse Rate Respiratory Rate Blood Pressure Blood Pressure [Right Arm] Pulse Oximetry 99 99 99 06/10/20 14:46 06/10/20 14:51 06/10/20 14:56 Temperature Pulse Rate Respiratory Rate Blood Pressure Blood Pressure [Right Arm] Pulse Oximetry 100 100 100 06/10/20 15:00 06/10/20 15:01 06/10/20 15:06 Temperature Pulse Rate 73 Respiratory Rate 20 Blood Pressure 147/93 H Blood Pressure [Right Arm] Pulse Oximetry 100 100 06/10/20 15:11 06/10/20 15:16 06/10/20 15:21 Temperature Pulse Rate Respiratory Rate Blood Pressure Blood Pressure [Right Arm]
[2020-06-11] MEDS: LACTATED RINGERS 1,000 ML 75 ML IV CONT (09:16)
[2020-06-11] MEDS: LABETALOL HCL 100 MG TABLET 200 MG PO (09:17)
[2020-06-11] MEDS: MAGNESIUM SULF 20GM/WATER500ML 500 ML 50 MG IV CONT (09:17)
[2020-06-11] MEDS: MULTIVIT/MIN/PREN/FOL AC/IRON TABLET 1 TAB PO (09:18)
[2020-06-11] MEDS: SENNA/DOCUSATE SODIUM TABLET 1 TAB PO (10:04)
[2020-06-11 12:43] LABS: Basophils Absolute Auto 0.1 K/mm3 (0.0-0.1); Basophils Percent Auto 0.8 % (0.2-1.2); Eosinophils Absolute Auto 0.3 K/mm3 (0-0.3); Eosinophils Percent Auto 3.9 % (0-4.4); Hematocrit 30.7 % (37.0-47.0); Hemoglobin 10.1 g/dL (12.0-15.0); Immature Granulocyte Absolute 0.02 K/mm3 (0.00-0.031); Immature Granulocyte Percent A 0.3 % (0-0.5); Lymphocytes Percent Auto 26.6 % (18.3-44.2); Mean Corpuscular HGB Conc 32.9 g/dl (32-36); Mean Corpuscular Hemoglobin 29.2 pg (26-34); Mean Corpuscular Volume 88.7 fl (80-100); Mean Platelet Volume 11.4 fl (7.4-10.4); Monocytes Absolute Auto 0.3 K/mm3 (0.1-0.6); Monocytes Percent Auto 5.3 % (2.6-8.5); Neutrophils Percent Auto 63.1 % (45.5-73.1); Platelet Count Result 206 k/mm3 (150-375); Red Blood Count 3.46 M/mm3 (4.2-5.4); Red Cell Distribution Width 13.7 % (11.5-14.5); White Blood Count 6.4 K/mm3 (4.5-10.0)
[2020-06-11 13:01] LABS: Alanine Aminotransferase 48 U/L (4-35); Albumin Level 3.5 g/dL (3.5-5.1); Alkaline Phosphatase 115 U/L (38-126); Aspartate Amino Transferase 37 U/L (14-36); Bilirubin,Total < 0.1 mg/dL (0.2-1.3); Blood Urea Nitrogen 10 mg/dL (7-17); Calcium 6.7 mg/dL (8.4-10.2); Carbon Dioxide 24 mmol/L (22-30); Chloride 107 mmol/L (98-107); Estimated CRCL calculation 143 ml/min; Estimated Glomerular Filt Rate > 60; Glucose 88 mg/dL (65-105); Potassium 3.7 mmol/L (3.4-5.0); Sodium 136 mmol/L (137-145); Uric Acid 6.2 mg/dL (2.5-7.5)
--- NOTE | 2020-06-11 13:17 | PC.NURSE ---
1300--Pt reports feeling better. Denies headache, blurry vision. Up to BR with assistance from Mom.
--- NOTE | 2020-06-11 15:12 | PC.NURSE ---
1445--updated Ramona Keating on pt condition and labs.
== END 2020-06-11 18:04 | disposition home or self-care (01) ==
LOC: ANHOBOP 10:41 → ANHOBPP 10:42 → ANHOBOP 11:46 → ANHOBPP 11:46
PROVIDERS: Advanced Practice Midwife; Admitting Provider Obstetrics & Gynecology; PCP Family Medicine; Visit Provider Obstetrics & Gynecology
DX: O13.5 Gestational [pregnancy-induced] hypertension without significant proteinuria, complicating the puerperium (principal); Z87.891 Personal history of nicotine dependence
CPT/HCPCS: 36415; 80053; 84550; 85025; 85027; 85055; 96361; 96365; 96366; 99199; A9270; G0378; G0379; J3475; J7120

== ENCOUNTER 2020-06-13 13:35 | Inpatient (IN) | payer OTHER, SELFPAY ==
[2020-06-13] VITALS (115 sets, daily range): BP systolic 118–173; BP diastolic 51–116; PULSE 62–103; RESP 16–19; TEMP 36.6–37.4; O2SAT 96–100
[2020-06-13 14:16] LABS: Basophils Absolute Auto 0.1 K/mm3 (0.0-0.1); Basophils Percent Auto 1.2 % (0.2-1.2); Eosinophils Absolute Auto 0.1 K/mm3 (0-0.3); Eosinophils Percent Auto 2.2 % (0-4.4); Hematocrit 32.5 % (37.0-47.0); Hemoglobin 10.5 g/dL (12.0-15.0); Immature Granulocyte Absolute 0.01 K/mm3 (0.00-0.031); Immature Granulocyte Percent A 0.2 % (0-0.5); Lymphocytes Absolute Auto 1.53 K/mm3 (0.9-3.2); Lymphocytes Percent Auto 25.5 % (18.3-44.2); Mean Corpuscular HGB Conc 32.3 g/dl (32-36); Mean Corpuscular Volume 89.8 fl (80-100); Mean Platelet Volume 11.2 fl (7.4-10.4); Monocytes Absolute Auto 0.4 K/mm3 (0.1-0.6); Monocytes Percent Auto 6.7 % (2.6-8.5); Neutrophils Absolute Auto 3.9 K/mm3 (1.3-6.7); Neutrophils Percent Auto 64.2 % (45.5-73.1); Platelet Count Result 221 k/mm3 (150-375); Red Blood Count 3.62 M/mm3 (4.2-5.4); Red Cell Distribution Width 13.7 % (11.5-14.5)
[2020-06-13] MEDS: LABETALOL HCL INJ 100 MG/20 ML VIAL 20 MG IV PUSH (14:19)
[2020-06-13] MEDS: ACETAMINOPHEN 500 MG TABLET 1000 MG PO (14:21)
[2020-06-13 14:30] LABS: Alanine Aminotransferase 49 U/L (4-35); Albumin Level 3.8 g/dL (3.5-5.1); Alkaline Phosphatase 114 U/L (38-126); Aspartate Amino Transferase 34 U/L (14-36); Bilirubin,Total 0.2 mg/dL (0.2-1.3); Blood Urea Nitrogen 15 mg/dL (7-17); Calcium 8.6 mg/dL (8.4-10.2); Carbon Dioxide 23 mmol/L (22-30); Chloride 110 mmol/L (98-107); Estimated Glomerular Filt Rate > 60; Glucose 87 mg/dL (65-105); Potassium 4.1 mmol/L (3.4-5.0); Sodium 140 mmol/L (137-145); Uric Acid 6.4 mg/dL (2.5-7.5)
[2020-06-13] MEDS: LABETALOL HCL INJ 100 MG/20 ML VIAL 40 MG IV PUSH (14:42)
[2020-06-13] MEDS: LABETALOL HCL INJ 100 MG/20 ML VIAL 80 MG IV PUSH (14:54)
[2020-06-13] MEDS: hydrALAZINE HCL 20 MG/ML VIAL 10 MG IV PUSH ×2 (15:18→15:49)
--- NOTE | 2020-06-13 15:44 | PC.NURSE ---
1544- called, informed of bp after hypertension protocol. Orders received for another 10mg of hydralazine and start magnesium sulfate now.
[2020-06-13] MEDS: LACTATED RINGERS 1,000 ML 75 ML IV CONT (16:00)
[2020-06-13] MEDS: MAGNESIUM SULF 4 GM/WATER100ML 4 GM/100 ML BAG IVPB (16:00)
--- NOTE | 2020-06-13 16:10 | PC.NURSE ---
1558- called in for update on bp's, orders received to give one time dose of labetalol 200 mg once Magnesium is started.
--- NOTE | 2020-06-13 16:12 | OBADM ---
This patient, Jeferson Patel, admitted to the OB room OB Post 115 for observation. Patient/family oriented to hospital policies and general routines including ID bracelet, bed and alarms, visiting hours, pain management, procedures, bathroom and other care routines, personal items, smoking policy, room service/diet, and visiting hours. Patient/Family are encouraged to report perceived risks to care and to ask questions if they do not understand what they are told or what they should do.
--- NOTE | 2020-06-13 16:14 | PC.NURSE ---
1403-S.Rishabh HUTSON called with elevated bp. She saw pt in the office and had her nurse drive pt over for severe elevated bp's. Informed of admission bp, orders received to follow hypertension protocol, start with labetalol IV and draw PIH labs.
--- NOTE | 2020-06-13 16:16 | PC.NURSE ---
Garcia-SBelinda HUTSON has been on unit for the last 45 minutes and is aware of bp's and medication given.
[2020-06-13] MEDS: LABETALOL HCL 100 MG TABLET 200 MG PO (16:24)
[2020-06-13] MEDS: MAGNESIUM SULF 20GM/WATER500ML 500 ML 50 MG IV CONT (16:29)
--- NOTE | 2020-06-13 18:06 | PM.IMHP ---
H&P: HPI History of Present Illness Chief complaint: pp pih Narrative: Jeferson Patel is a 20 year old female who presents 6 days after being in the office with severe range blood pressures. protocol started and Dr. Braga aware. Dr. braga notified blood pressures sever range after IV medication and magnesium sulfate started with 200mg po labetalol. Pt c/o mild headache, denies epigastric pain and visual changes. bilateral 1+ swelling with brisk reflexes on admission PMFSH Past Medical History Medical History (Updated 06/06/20 @ 02:34 by Paulina Hale CRNA) PIH ( induced hypertension) Social History Social History Smoking status: Former smoker Second hand tobacco smoke exposure: No Substance use: never Gender identity (if verbalized by the patient): Female Spiritual care concerns: No Meds Home Medications and Allergies Home Medications Medication Instructions Recorded Confirmed Type ibuprofen 600 mg PO Q6H PRN #30 tablet 06/09/20 06/10/20 Rx PNV cmb#95-ferrous fumarate-FA 1 tablet PO DAILY 06/10/20 06/10/20 History [] acetaminophen 1,000 mg PO Q6H PRN tablet 06/11/20 Rx benzocaine-menthol [Dermoplast 1 spray TOPICAL PRN PRN g 06/11/20 Rx (with menthol)] labetalol 200 mg PO Q12H 14 Days #56 tablet 06/11/20 Rx lanolin [Nki-K-Thelav] 1 applic TOPICAL PRN PRN g 06/11/20 Rx witch dawit [Preparation H (Witch 1 pad TOPICAL PRN PRN ea 06/11/20 Rx Dawit)] Allergies Allergy/AdvReac Type Severity Reaction Status Date / Time No Known Allergies Allergy Verified 06/10/20 13:45 Vital Signs Vital Signs - 24 hr 06/13/20 13:54 06/13/20 14:01 06/13/20 14:15 Temperature Pulse Rate 70 62 71 Respiratory Rate Blood Pressure 170/116 H 165/96 H 168/100 H Blood Pressure [Left Arm] Pulse Oximetry 06/13/20 14:19 06/13/20 14:31 06/13/20 14:42 Temperature Pulse Rate 71 65 65 Respiratory Rate Blood Pressure 168/105 H Blood Pressure [Left Arm] Pulse Oximetry 06/13/20 14:46 06/13/20 14:51 06/13/20 14:52 Temperature Pulse Rate 68 70 Respiratory Rate Blood Pressure 165/95 H 170/105 H Blood Pressure [Left Arm] Pulse Oximetry 99 06/13/20 14:54 06/13/20 14:56 06/13/20 15:01 Temperature Pulse Rate 68 Respiratory Rate Blood Pressure Blood Pressure [Left Arm] Pulse Oximetry 99 100 06/13/20 15:06 06/13/20 15:08 06/13/20 15:11 Temperature Pulse Rate 71 Respiratory Rate Blood Pressure 173/95 H Blood Pressure [Left Arm] 170/116 H Pulse Oximetry 96 99 06/13/20 15:16 06/13/20 15:21 06/13/20 15:26 Temperature Pulse Rate 68 Respiratory Rate Blood Pressure 169/93 H Blood Pressure [Left Arm] Pulse Oximetry 98 98 100 06/13/20 15:31 06/13/20 15:36 06/13/20 15:41 Temperature Pulse Rate 77 73 Respiratory Rate Blood Pressure 166/99 H 172/102 H Blood Pressure [Left Arm] Pulse Oximetry 100 99 100 06/13/20 15:46 06/13/20 15:51 06/13/20 15:52 Temperature Pulse Rate 83 Respiratory Rate Blood Pressure 167/97 H Blood Pressure [Left Arm] Pulse Oximetry 98 99 100 06/13/20 15:57 06/13/20 15:59 06/13/20 16:01 Temperature Pulse Rate 86 Respiratory Rate Blood Pressure 152/81 H Blood Pressure [Left Arm] Pulse Oximetry 99 100 06/13/20 16:02 06/13/20 16:04 06/13/20 16:09 Temperature 37.4 C Pulse Rate 90 Respiratory Rate 19 Blood Pressure 152/81 H Blood Pressure [Left Arm] Pulse Oximetry 100 99 100 06/13/20 16:14 06/13/20 16:16 06/13/20 16:19 Temperature Pulse Rate 92 Respiratory Rate Blood Pressure 141/76 H Blood Pressure [Left Arm] Pulse Oximetry 99 98 06/13/20 16:24 06/13/20 16:29 06/13/20 16:30 Temperature 37.3 C Pulse Rate 92 95 Respiratory Rate 17 Blood Pressure 149/85 H Blood Pressure [Left Arm] Pulse Oximetry 99 99 100 06/13/20 16:39 06/13/20 16:42 07
--- NOTE | 2020-06-13 21:18 | PC.NURSE ---
2114- called Leidy Keating for order clarification. brandon order received for pt headache.
--- NOTE | 2020-06-13 21:50 | PC.NURSE ---
2114- will hold labetalol dose for 9pm as BP are within normal range
[2020-06-14] VITALS (155 sets, daily range): BP systolic 107–151; BP diastolic 60–92; PULSE 69–98; RESP 14–20; TEMP 36.6–36.9; O2SAT 95–100
[2020-06-14] MEDS: IBUPROFEN 600 MG TABLET PO ×2 (02:18→11:06)
[2020-06-14] MEDS: MAGNESIUM SULF 20GM/WATER500ML 500 ML 50 MG IV CONT ×2 (02:20→12:26)
[2020-06-14] MEDS: LACTATED RINGERS 1,000 ML 75 ML IV CONT (02:21)
[2020-06-14 04:59] LABS: Hematocrit 34.9 % (37.0-47.0); Hemoglobin 11.3 g/dL (12.0-15.0); Mean Corpuscular HGB Conc 32.4 g/dl (32-36); Mean Corpuscular Hemoglobin 28.9 pg (26-34); Mean Corpuscular Volume 89.3 fl (80-100); Mean Platelet Volume 10.9 fl (7.4-10.4); Platelet Count Result 248 k/mm3 (150-375); Red Blood Count 3.91 M/mm3 (4.2-5.4); Red Cell Distribution Width 13.6 % (11.5-14.5); White Blood Count 6.5 K/mm3 (4.5-10.0)
[2020-06-14 05:20] LABS: Alanine Aminotransferase 55 U/L (4-35); Albumin Level 3.8 g/dL (3.5-5.1); Alkaline Phosphatase 127 U/L (38-126); Aspartate Amino Transferase 38 U/L (14-36); Bilirubin,Total 0.2 mg/dL (0.2-1.3); Blood Urea Nitrogen 10 mg/dL (7-17); Calcium 7.4 mg/dL (8.4-10.2); Carbon Dioxide 22 mmol/L (22-30); Chloride 106 mmol/L (98-107); Estimated Glomerular Filt Rate > 60; Glucose 97 mg/dL (65-105); Potassium 3.7 mmol/L (3.4-5.0); Sodium 137 mmol/L (137-145); Uric Acid 6.8 mg/dL (2.5-7.5)
--- NOTE | 2020-06-14 07:27 | PC.NURSE ---
Dr. Cast on unit and informed of BP's and lab results from this am. Discussed that PO Labetalol was held last night and scheduled meds for this am. Dr. Cast wants to stay with the Labetalol, just a higher dose and not give Procardial XL. To repeat labs 8 hrs after last draw.
[2020-06-14] MEDS: MULTIVIT/MIN/PREN/FOL AC/IRON TABLET 1 TAB PO (07:58)
[2020-06-14] MEDS: LABETALOL HCL 100 MG TABLET 400 MG PO ×2 (07:59→19:51)
--- NOTE | 2020-06-14 10:59 | PC.NURSE ---
Pt was sleeping when I entered the room. O2 sat 96%. Will leave pulse oximeter on as pt sleeps. Pt denies shortness of breath. C/O cramping in vagina. Scant light brown on pad; no clots.
--- NOTE | 2020-06-14 11:53 | PM.OBPNVD ---
OB - PN: Subj Subjective Date/time seen: 06/14/20 11:53 Patient comments: no complaints and pain well controlled feeding status: pumping and bottle feeding Narrative: Patient denies any headache, blurry vision, epigastric pain. She denies any nausea vomiting , fever, chills. she denies any breast problems. OB - PN: Obj Data Labs CBC & Chem 7: 06/14/20 04:52 06/14/20 04:52 Labs: Laboratory Results - last 24 hr 06/13/20 06/13/20 06/14/20 13:46 13:46 04:52 WBC 6.0 6.5 RBC 3.62 L 3.91 L Hgb 10.5 L 11.3 L Hct 32.5 L 34.9 L MCV 89.8 89.3 MCH 29.0 28.9 MCHC 32.3 32.4 RDW 13.7 13.6 Plt Count 221 248 MPV 11.2 H 10.9 H Immature Gran % (Auto) 0.2 Neut % (Auto) 64.2 Lymph % (Auto) 25.5 [place] % (Auto) 6.7 Eos % (Auto) 2.2 Baso % (Auto) 1.2 Lymph # (Auto) 1.53 [place] # (Auto) 0.4 Eos # (Auto) 0.1 Baso # (Auto) 0.1 Abs Immat Gran (auto) 0.01 Absolute Neuts (auto) 3.9 Absolute Nucleated RBC 0.0 Nucleated RBC % 0.0 Sodium 140 Potassium 4.1 Chloride 110 H Carbon Dioxide 23 BUN 15 D Creatinine 0.70 Estim Creat Clear Calc Not Reportable Estimated GFR > 60 Glucose 87 Uric Acid 6.4 Calcium 8.6 Total Bilirubin 0.2 AST 34 ALT 49 H Alkaline Phosphatase 114 Total Protein 7.0 Albumin 3.8 06/14/20 04:52 WBC RBC Hgb Hct MCV MCH MCHC RDW Plt Count MPV Immature Gran % (Auto) Neut % (Auto) Lymph % (Auto) [place] % (Auto) Eos % (Auto) Baso % (Auto) Lymph # (Auto) [place] # (Auto) Eos # (Auto) Baso # (Auto) Abs Immat Gran (auto) Absolute Neuts (auto) Absolute Nucleated RBC Nucleated RBC % Sodium 137 Potassium 3.7 Chloride 106 Carbon Dioxide 22 BUN 10 D Creatinine 0.70 Estim Creat Clear Calc Not Reportable Estimated GFR > 60 Glucose 97 Uric Acid 6.8 Calcium 7.4 L Total Bilirubin 0.2 AST 38 H ALT 55 H Alkaline Phosphatase 127 H Total Protein 7.0 Albumin 3.8 OB - PN A/P Assessment and Plan (1) Preeclampsia in period: Code(s): O14.95 - Unspecified pre-eclampsia, complicating the puerperium Status: Acute Assessment and Plan: this patient is a 20-year-old multiparous female who is day number 7 who had was admitted for preeclampsia. She has had markedly high blood pressures initially. She is under control now with 400 of labetalol and magnesium sulfate. Magnesium sulfate will be continued discontinue later in the day. Will observe her blood pressures overnight again. We will continue to observe her labs. There was some changes in her liver enzymes that we will follow up on later in the day. Time Spent With Patient Time: Total time spent is greater than 50% in coordination of care (as documented) at patient's floor/unit and/or counseling patient: Exam Const: General: comfortable and no acute distress Resp: Effort & Inspection: normal respiratory effort Auscultation: no rales, no rhonchi and no wheezes Cardio: Rate: regular rate Heart sounds: no click, no murmurs and no rubs GI: GI Palp: Yes Soft to palpation and No Tenderness to palpation present (GI) Auscultation: normal bowel sounds Extrem: General: normal to inspection, no pedal edema and no calf tenderness
--- NOTE | 2020-06-14 12:18 | PC.NURSE ---
Pt has slept most of the morning. Pt did pump again and milk taken to fridge. Boyfriend had picked up the breastmilk she had already pumped to take home. Pt states baby won't be coming up to visit today as baby has a skin staph infection on lower abdomen and thigh area (where the diaper was). Pt states infant is on antibiotics and having loose stools. Pt's mother is caring for infant. Pt encouraged to get as much rest as she can while in the hospital. Pt has been in contact with her mother over the phone getting updates on .
[2020-06-14 13:00] LABS: Hematocrit 34.4 % (37.0-47.0); Mean Corpuscular Hemoglobin 28.6 pg (26-34); Mean Corpuscular Volume 89.6 fl (80-100); Mean Platelet Volume 10.8 fl (7.4-10.4); Platelet Count Result 268 k/mm3 (150-375); Red Blood Count 3.84 M/mm3 (4.2-5.4); Red Cell Distribution Width 13.9 % (11.5-14.5)
[2020-06-14 13:14] LABS: Alanine Aminotransferase 54 U/L (4-35); Albumin Level 3.9 g/dL (3.5-5.1); Alkaline Phosphatase 128 U/L (38-126); Aspartate Amino Transferase 36 U/L (14-36); Bilirubin,Total 0.1 mg/dL (0.2-1.3); Blood Urea Nitrogen 11 mg/dL (7-17); Calcium 7.1 mg/dL (8.4-10.2); Carbon Dioxide 24 mmol/L (22-30); Chloride 107 mmol/L (98-107); Estimated Glomerular Filt Rate > 60; Glucose 92 mg/dL (65-105); Potassium 4.2 mmol/L (3.4-5.0); Sodium 137 mmol/L (137-145); Uric Acid 6.5 mg/dL (2.5-7.5)
--- NOTE | 2020-06-14 14:00 | PC.NURSE ---
Pt is using breast pump. Will check BP when she is done.
--- NOTE | 2020-06-14 15:44 | PC.NURSE ---
Dr. Cast informed of lab results and BP's. Order received to discontinue Magnesium Sulfate at 1558 and saline lock IV. To continue Labetalol 400 mg PO q 12.
--- NOTE | 2020-06-14 17:36 | PC.NURSE ---
Blurred vision has resolved at present.
[2020-06-15] VITALS (30 sets, daily range): BP systolic 131–165; BP diastolic 70–104; PULSE 57–95; RESP 15–20; TEMP 36.4–37.3; O2SAT 97–100
[2020-06-15] MEDS: IBUPROFEN 600 MG TABLET PO (01:14)
--- NOTE | 2020-06-15 07:20 | PC.NURSE ---
Pt remains sleeping.
[2020-06-15] MEDS: LABETALOL HCL 100 MG TABLET 600 MG PO (08:04)
[2020-06-15] MEDS: MULTIVIT/MIN/PREN/FOL AC/IRON TABLET 1 TAB PO (08:11)
--- NOTE | 2020-06-15 13:11 | P.PNOB_ITS ---
OB - PN: Subj Subjective Date/time seen: 06/15/20 13:11 she denies any headache, blurry vision, epigastric pain. She denies any swelling. OB - PN: Obj Data Labs CBC & Chem 7: 06/14/20 12:44 06/14/20 12:44 Labs: Laboratory Results - last 24 hr 06/14/20 12:44 Sodium 137 Potassium 4.2 Chloride 107 Carbon Dioxide 24 BUN 11 Creatinine 0.80 Estim Creat Clear Calc Not Reportable Estimated GFR > 60 Glucose 92 Uric Acid 6.5 Calcium 7.1 L Total Bilirubin 0.1 L AST 36 ALT 54 H Alkaline Phosphatase 128 H Total Protein 7.0 Albumin 3.9 OB - PN A/P Assessment and Plan (1) Preeclampsia in period: Code(s): O14.95 - Unspecified pre-eclampsia, complicating the puerperium Status: Acute Assessment and Plan: This patient is a 20-year-old multi hip at 8 days who has preeclampsia. She is been taken off Mag sulfate. Her blood pressures have been elevated since. We have increased labetalol 2 little effect and now intend at [place] or Procardia. If we can improve her blood pressures moderately we will discharge her. Time Spent With Patient Time: Total time spent is greater than 50% in coordination of care (as documented) at patient's floor/unit and/or counseling patient: Exam Const: General: comfortable, no acute distress and alert Resp: Effort & Inspection: normal respiratory effort Auscultation: no crackles, no rales and no rhonchi Cardio: Rate: regular rate Heart sounds: no click, no murmurs and no rubs GI: Inspection: non-distended GI Palp: No Tenderness to palpation present ( GI) Auscultation: normal bowel sounds Other: Incision - CDI Extrem: General: normal to inspection, no pedal edema and no calf tenderness
[2020-06-15] MEDS: NIFEdipine 30 MG TAB.ER.24 PO ×2 (13:33→16:48)
--- NOTE | 2020-06-15 16:34 | PC.NURSE ---
Dr. Cast informed of BP's. Order for another dose of Procardia received.
--- NOTE | 2020-06-15 18:40 | PC.NURSE ---
Updated Dr. Cast on maternal assessment, including vital signs. BP's 150-160/90's. Plan of care discussed. Medication order changed. Orders for labs received. Notify Dr. Cast for repetitive BP's of 160/100 x2. BP's per Q4hour while patient sleeping and Q2hour while patient awake.
--- NOTE | 2020-06-15 18:55 | PC.NURSE ---
Plan of care discussed with patient. Patient agrees with plan of care and denies questions.
[2020-06-15 19:04] LABS: Basophils Absolute Auto 0.1 K/mm3 (0.0-0.1); Basophils Percent Auto 1.1 % (0.2-1.2); Eosinophils Absolute Auto 0.2 K/mm3 (0-0.3); Eosinophils Percent Auto 3.2 % (0-4.4); Hematocrit 35.8 % (37.0-47.0); Hemoglobin 11.6 g/dL (12.0-15.0); Immature Granulocyte Absolute 0.01 K/mm3 (0.00-0.031); Immature Granulocyte Percent A 0.2 % (0-0.5); Lymphocytes Absolute Auto 2.03 K/mm3 (0.9-3.2); Lymphocytes Percent Auto 32.4 % (18.3-44.2); Mean Corpuscular HGB Conc 32.4 g/dl (32-36); Mean Corpuscular Hemoglobin 29.2 pg (26-34); Mean Corpuscular Volume 90.2 fl (80-100); Mean Platelet Volume 10.8 fl (7.4-10.4); Monocytes Absolute Auto 0.3 K/mm3 (0.1-0.6); Monocytes Percent Auto 4.6 % (2.6-8.5); Neutrophils Absolute Auto 3.7 K/mm3 (1.3-6.7); Neutrophils Percent Auto 58.5 % (45.5-73.1); Platelet Count Result 257 k/mm3 (150-375); Red Blood Count 3.97 M/mm3 (4.2-5.4); Red Cell Distribution Width 13.7 % (11.5-14.5); White Blood Count 6.3 K/mm3 (4.5-10.0)
[2020-06-15 19:15] LABS: Alanine Aminotransferase 42 U/L (4-35); Albumin Level 4.1 g/dL (3.5-5.1); Alkaline Phosphatase 109 U/L (38-126); Aspartate Amino Transferase 27 U/L (14-36); Bilirubin,Total 0.2 mg/dL (0.2-1.3); Blood Urea Nitrogen 11 mg/dL (7-17); Calcium 8.9 mg/dL (8.4-10.2); Carbon Dioxide 22 mmol/L (22-30); Chloride 108 mmol/L (98-107); Estimated Glomerular Filt Rate > 60; Glucose 132 mg/dL (65-105); Potassium 3.8 mmol/L (3.4-5.0); Sodium 138 mmol/L (137-145)
[2020-06-15] MEDS: LABETALOL HCL 100 MG TABLET 800 MG PO (19:55)
--- NOTE | 2020-06-15 20:38 | PC.NURSE ---
BP assessed during patient pumping. BP elevated. BP set to [id number] while patient is pumping. Patient to call RN when finished pumping. Patient denies POST, Visual changes or epigastric pain. Patient resting comfortably.
--- NOTE | 2020-06-15 21:00 | PC.NURSE ---
Patient BP assessed following pumping. BP 152/98. Will reassess patient BP in 1 hour. Plan of care discussed with patient.
[2020-06-16] VITALS (13 sets, daily range): BP systolic 130–166; BP diastolic 75–100; PULSE 70–86; TEMP 36.2–36.9
[2020-06-16] MEDS: LABETALOL HCL 100 MG TABLET 800 MG PO (08:05)
[2020-06-16] MEDS: MULTIVIT/MIN/PREN/FOL AC/IRON TABLET 1 TAB PO (09:05)
[2020-06-16] MEDS: NIFEdipine 30 MG TAB.ER.24 60 MG PO (09:05)
--- NOTE | 2020-06-16 11:00 | PC.NURSE ---
called Dr. Cast and updated BP. reported pt requesting discharge. discharge order received
--- NOTE | 2020-07-19 12:32 | PM.DS ---
DS: Admitting Diagnosis Admitting Diagnosis Admitting Diagnosis: pp [facility] DS: Discharge Diagnosis Discharge Diagnosis (1) Preeclampsia in period: Code(s): O14.95 - Unspecified pre-eclampsia, complicating the puerperium Status: Acute DS: Summary Hospital Course Reason for hospitalization: preeclampsia Hospital Course: patient was admitted for preeclampsia. She was 2-3 days from a vaginal . She was placed on magnesium sulfate and antihypertensive medications and observe for 2 days. Her hospital course was unremarkable. Her blood pressures were controlled. Her preeclampsia defervesced. She was discharged home on hospital day 2. Status at Discharge Functional status at discharge: independent ambulation Time Spent with Patient Time attestation: Total time spent providing and/or coordinating discharge services: Time spent: Less than 30 minutes Discharge Plan Discharge Consulting providers: Leidy Keating Discharging Clinician: Anuj Cast Patient Disposition: Home, Self-Care Activity: as tolerated Diet: regular Discharge Instructions: Education: Mom and Baby Guide Given to: Mother Follow-Up: Call your delivering provider's office for an appointment to be seen in: 1 Week Mom and baby should come to the [facility] for the follow-up appointment. Appointment Date/Time: at What to expect at your follow-up visit: Blood Pressure Check Call [phone] if you are unable to keep your appointment time. BREAST CARE: 1. Wear a snug supportive bra. 2. For engorgement discomfort: Breast Feeding: A. Apply warm moist washcloths B. Express milk as needed to relieve engorgement C. Wear loose clothing Bottle Feeding: A. May apply ice packs 3. For sore nipples: A. Identify correct latch-on B. Apply warm moist washcloths before and after nursing C. Air dry nipples after nursing D. May apply Lansinoh cream to nipples ABDOMINAL INCISION: (if applicable) 1. Allow incision to air dry 2. Do NOT use lotions for powders on your incision 3. When showering, allow soap and water to run over the incision, but do not wash incision EPISIOTOMY/PERINEAL CARE: 1. Until bleeding stops, use your nas bottle after urinating 2. Change your pad frequently throughout the day 3. You may take sitz baths several times a day (fill your bathtub with warm water and soak for 20 minutes.) Do NOT bathe in the water 4. No tub baths until seen by your physician - You may shower ACTIVITY: 1. Rest as much as possible. 2. Do not exercise or lift anything heavier than your baby (such as laundry or other children.) 3. Avoid stairs or driving as much as possible. 4. Do not put anything into the vagina. No douching, tampons, or sexual activity until seen by physician. NOTIFY PHYSICIAN IF YOU HAVE ANY QUESTIONS OR IF ANY OF THE FOLLOWING SYMPTOMS OCCUR: 1. If your episiotomy or incision becomes red, swollen, or more painful than what you have experienced in the hospital. 2. If your vaginal bleeding becomes foul smelling. 3. If your vaginal bleeding becomes more heavy than a period or if your bleeding changes from pink to bright red. However, you may pass an occasional walnut-sized clot once or twice for the first week . 4. If you experience a sharp, shooting pain in you calves. 5. If you discover a hard, reddened area on your breast or if you experience flu-like symptoms. DIET: 1. Eat regular, well-balanced meals. 2. Drink plenty of fluids daily. If , drink to thirst. Patient Instructions: Antibiotic Form Stand Alone Forms: General Discharge Information Follow-up/Referrals: Anuj Cast MD [Physician] - Discharge Medications: New ibuprofen 600 mg Tablet 600 mg PO Q6H PRN (Reason: Cramping) RF: 0 nifedipine [Proca
== END 2020-06-16 12:28 | disposition home or self-care (01) | DRG 776 ==
LOC: ANHOBOP 13:41 → ANHOBPP 13:43 → ANHOBOP 16:14 → ANHOBPP 06-15 21:03
PROVIDERS: Advanced Practice Midwife; Admitting Provider Obstetrics & Gynecology; PCP Family Medicine; Visit Provider Obstetrics & Gynecology
DX: O14.95 Unspecified pre-eclampsia, complicating the puerperium (principal)
CPT/HCPCS: 36415; 80053; 84550; 85025; 85027; 99199; A9270; J0360; J3475; J7120

== ENCOUNTER 2021-05-29 14:00 | Emergency (ER) | payer OTHER, SELFPAY ==
[2021-05-29 14:07] VITALS: BP 132/80; PULSE 88; RESP 16; TEMP 37.1; O2SAT 99
--- NOTE | 2021-05-29 14:45 | ED.URI ---
HPI - URI/Sore Throat General Chief Complaint: Upper Respiratory Infection Stated Complaint: sore throat Time Seen by Provider: 05/29/21 14:33 Source: patient and RN notes reviewed Mode of arrival: ambulatory Limitations: no limitations History of Present Illness HPI Narrative: Patient presents today complaining of sore throat, subjective fever, chills and sweats and last night. Denies cough, congestion, rhinorrhea, or any other additional symptoms. Currently rates her pain 5/10 and has been taking ibuprofen without relief. MD elicited complaint: sore throat Related Data Home Medications Medication Instructions Recorded Confirmed Iud 05/29/21 phentermine mg 05/29/21 Allergies Allergy/AdvReac Type Severity Reaction Status Date / Time No Known Allergies Allergy Verified 06/10/20 13:45 Review of Systems Review of Systems: Narrative: CONSTITUTIONAL: Denies body aches. + Subjective fever, chills, sweats EYES: Denies visual changes, redness, or discharge. ENT: Denies rhinorrhea, congestion, or otalgia.+ Sore throat CARDIOVASCULAR: Denies chest pain, palpitations, or edema. RESPIRATORY: Denies cough or dyspnea. GASTROINTESTINAL: Denies abdominal pain, nausea, vomiting, or diarrhea. GENITOURINARY: Denies dysuria or hematuria. SKIN: Denies rash, itching, or wounds. MUSCULOSKELETAL: Denies back pain, joint pain, or myalgia. NEUROLOGIC: Denies headache, numbness, tingling, or weakness. PSYCH: Denies depression or anxiety. [facility] Past Medical History Medical History (Updated 05/29/21 @ 14:50 by Anu Wilkinson, [facility], ) PIH ( induced hypertension) Family History Family History Mother Diabetes mellitus Grandparent Hypertension Grandparent Lung cancer Social History Social History Smoking status: Former smoker Second hand tobacco smoke exposure: No Substance use: never Gender identity (if verbalized by the patient): Female Spiritual care concerns: No Comments At time of signature, I have reviewed and agree with nursing past medical, surgical, social and family history unless otherwise noted. Please see nursing chart for further information. There is no relevant family history pertinent to the presenting complaint Exam Narrative: Exam Narrative: GENERAL: Well-appearing, well-nourished, and in no acute distress. HEAD: Normocephalic, atraumatic. EYES: EOMI. No redness or drainage. Conjunctivae normal. ENT: Mucous membranes pink and moist. Nares clear. No rhinorrhea. TMs normal bilaterally. Throat mildly erythematous without edema or exudate. Uvula midline. NECK: Normal AROM. Supple. No lymphadenopathy. CHEST: No respiratory distress. Clear to auscultation. HEART: Regular rate and rhythm. No murmur appreciated. Normal peripheral pulses. EXTREMITIES: Normal range of motion. No edema. SKIN: Warm, dry, no rash. Capillary refill normal. Normal skin turgor. NEURO: No focal deficits. Alert and oriented x3. Gait steady. PSYCH: Normal affect. No signs of depression or anxiety. Course Vital Signs Vital signs: Vital Signs Temperature 98.8 F 05/29/21 14:07 Pulse Rate 88 05/29/21 14:07 Respiratory Rate 16 05/29/21 14:07 Blood Pressure 132/80 05/29/21 14:07 Pulse Oximetry 99 05/29/21 14:07 Temperature 98.8 F 05/29/21 14:07 Pulse Rate 88 05/29/21 14:07 Respiratory Rate 16 05/29/21 14:07 Blood Pressure 132/80 05/29/21 14:07 Pulse Oximetry 99 05/29/21 14:07 Reviewed. Pt has been instructed to follow up with her PCP regarding her elevated blood pressure today. MDM - URI/Sore Throat Differential Diagnosis Differential diagnosis: Likely upper respiratory infection, otitis media, sinusitis, viral infection, pharyngitis and other (Strep throat) Lab Data Attestation: I reviewed the patient's lab results. Labs: Strep Screen Presumptive Negative
== END 2021-05-29 14:54 | disposition home or self-care (01) ==
PROVIDERS: Emergency Provider Nurse Practitioner
DX: J02.9 Acute pharyngitis, unspecified (principal); Z87.891 Personal history of nicotine dependence
CPT/HCPCS: 87081; 87880; 99213; G0463

== ENCOUNTER 2021-05-31 15:11 | Emergency (ER) | payer OTHER, SELFPAY ==
--- NOTE | ~2021-05-31 | XR_ITS ---
EXAMINATION: XR chest 2V DATE: 05/31/2021 16:08 INDICATION: Cough TECHNIQUE: PA and lateral views of the chest are obtained. COMPARISON: None available FINDINGS: The lungs are free of acute opacities. There is no pleural effusion or pneumothorax. The ca rdiomediastinal silhouette is normal. The visualized bones and soft tissues are unremarkable. IMPRESSION: 1. No acute cardiopulmonary abnormality. Reviewed, dictated and finalized at location B.
[2021-05-31 15:25] VITALS: BP 142/88; PULSE 88; RESP 16; TEMP 36.6; O2SAT 98
--- NOTE | 2021-05-31 15:54 | ED.URI ---
HPI - URI/Sore Throat General Chief Complaint: Upper Respiratory Infection Stated Complaint: Congestion,Dizzy Time Seen by Provider: 05/31/21 15:54 Source: patient and RN notes reviewed Mode of arrival: ambulatory Limitations: no limitations History of Present Illness HPI Narrative: 21-year-old presents to the [facility] with complaints of fatigue, feeling lightheaded at times, sinus congestion with drainage, chills, intermittent shortness of breath associated with a cough and chest wall pain associated with a cough. Was seen a couple of days ago(05/29), strep negative at that time. Was seen then another clinic and was tested for Covid which she states today was negative. Had called primary care a couple of days ago started on a Z-Axel. States her symptoms are not getting any better. Has been taking DayQuil and ibuprofen with little to no relief. Related Data Home Medications Medication Instructions Recorded Confirmed Iud 1 dose 05/29/21 phentermine 37.5 mg PO DAILY 05/29/21 05/31/21 Allergies Allergy/AdvReac Type Severity Reaction Status Date / Time No Known Allergies Allergy Verified 05/31/21 15:35 Review of Systems Review of Systems: All systems reviewed & are unremarkable except as noted in HPI and below Constitutional: Constitutional: Reports as per HPI, Reports chills and Denies fever(s) Eyes: Eyes: Reports no additional eye complaints ENT: Reports as per HPI, Reports dizziness, Reports nasal congestion and Reports sore throat Cardiovascular: Cardiovascular: Reports no additional cardiovascular complaints, Denies chest pain, Denies rapid heart rate, Denies radiating jaw, neck or arm pain and Denies slow heart rate Respiratory: Respiratory: Reports as per HPI, Reports chest congestion, Reports cough, Reports dyspnea and Denies wheezing Gastrointestinal: Gastrointestinal: Reports no additional gastrointestinal complaints, Denies abdominal pain, Denies nausea and Denies vomiting Genitourinary: Genitourinary: Reports no additional female genitourinary complaints Musculoskeletal: Musculoskeletal: Reports no additional musculoskeletal complaints and Denies back pain Integumentary/Breasts: Skin/Breast: Reports system reviewed and no additional complaints, except as docu and Denies rash Neurologic: Reports system reviewed and no additional complaints, except as documented Psychiatric: Psychiatric: Reports no additional psychiatric complaints Allergic/Immunologic: Allergic/Immunologic: Reports no additional allergic/immunologic complaints [facility] Past Medical History Medical History (Updated 06/01/21 @ 15:16 by Jeannie Hicks) PIH ( induced hypertension) Family History Family History Mother Diabetes mellitus Grandparent Hypertension Grandparent Lung cancer Social History Social History Smoking status: Former smoker Second hand tobacco smoke exposure: No Substance use: never Gender identity (if verbalized by the patient): Female Spiritual care concerns: No Comments At the time of my signature, I reviewed and agree with the nursing past medical, surgical, social, and family history. There is no relevant family history pertinent to the patient complaint. Exam Const: General: healthy appearing, no acute distress, alert and confusion Nutritional Appearance: well nourished Orientation/consciousness: patient oriented x3 Limitations: no limitations HENMT: Head: normal to inspection Ears: hearing grossly normal bilaterally, external ears normal and TM's normal bilaterally General nose exam: Normal external nose present, Normal nares present and Normal nasal mucous membranes and turbinates present Face and sinus: normal facial exam and sinuses nontender Mouth: Yes Normal oral and palatal mucosa present, Yes lip normal, Yes tongue normal, Yes oropharynx normal and Yes moist mucous membranes Teeth and gingiva: dentition normal
[2021-05-31] MEDS: ALBUTEROL SULFATE NEB 2.5 MG/3 ML INH INHALATION (16:13)
[2021-05-31] MEDS: IPRATROPIUM BR 0.02% INH SOLN 0.5 MG/2.5 ML VIAL INHALATION (16:13)
== END 2021-05-31 16:50 | disposition home or self-care (01) ==
PROVIDERS: Emergency Provider Nurse Practitioner; PCP Family Medicine
DX: J06.9 Acute upper respiratory infection, unspecified (principal); Z87.891 Personal history of nicotine dependence
CPT/HCPCS: 71046; 94640; 99213; G0463

== ENCOUNTER 2022-01-10 10:35 | Outpatient (CLI) | payer OTHER, SELFPAY ==
--- NOTE | ~2022-01-10 | US_ITS ---
EXAMINATION: US breast BI complete HISTORY: Single episode of milky left nipple discharge TECHNIQUE: Complete bilateral breast ultrasound is performed including all four quadrants and the sub areolar aspects of the breasts FINDINGS: No sonographic correlate is identified for the patient's reported nipple discharge. There i s no suspicious cystic or solid mass in either breast. IMPRESSION: No specific sonographic correlate is identified for the patient's nipple discharge. Further evaluatio n at this time should be based on clinical assessment. Continued follow-up physical examination is re commended. BI-RADS Category 1: Negative Reviewed, dictated and finalized at location A. ENT COORDINATOR FRONT DESK IMPRESSION: No specific sonographic correlate is identified for the patient's nipple discha rge. Further evaluation at this time should be based on clinical assessment. Co ntinued follow-up physical examination is recommended. BI-RADS Category 1: Negative
== END 2022-01-10 10:36 | disposition home or self-care (01) ==
PROVIDERS: PCP Family Medicine; Visit Provider Family Medicine
DX: N64.52 Nipple discharge (principal)
CPT/HCPCS: 76641

== ENCOUNTER 2022-12-02 11:01 | Emergency (ER) | payer OTHER, SELFPAY ==
--- NOTE | 2022-12-02 11:26 | ED.URI ---
HPI - URI/Sore Throat General Chief Complaint: Upper Respiratory Infection Stated Complaint: Sore Throat/Bodyaches Time Seen by Provider: 12/02/22 11:26 Source: patient, RN notes reviewed and old records reviewed Mode of arrival: ambulatory Limitations: no limitations History of Present Illness HPI Narrative: 22-year-old female presents to the [facility] with complaints of a sore throat since yesterday. Has taken ibuprofen. Patient denies any other symptoms. Related Data Home Medications Medication Instructions Recorded Confirmed escitalopram oxalate 20 mg tablet 20 mg PO DAILY 12/02/22 12/02/22 semaglutide 1 mg/dose (4 mg/3 mL) 1 mg subcut WEEKLY 12/02/22 12/02/22 subcutaneous pen injector (Ozempic) trazodone 50 mg tablet 50 mg PO DAILY 12/02/22 12/02/22 Allergies Allergy/AdvReac Type Severity Reaction Status Date / Time No Known Allergies Allergy Verified 12/02/22 11:25 Review of Systems Review of Systems: All systems reviewed & are unremarkable except as noted in HPI and below Constitutional: Constitutional: Reports no additional constitutional complaints Eyes: Eyes: Reports no additional eye complaints ENT: Reports as per HPI and Reports sore throat Cardiovascular: Cardiovascular: Reports no additional cardiovascular complaints, Denies chest pain and Denies dyspnea Respiratory: Respiratory: Reports no additional respiratory complaints, Denies chest congestion, Denies cough and Denies dyspnea Gastrointestinal: Gastrointestinal: Reports no additional gastrointestinal complaints, Denies abdominal pain, Denies nausea and Denies vomiting Musculoskeletal: Musculoskeletal: Reports no additional musculoskeletal complaints Integumentary/Breasts: Skin/Breast: Reports system reviewed and no additional complaints, except as docu Neurologic: Reports system reviewed and no additional complaints, except as documented Psychiatric: Psychiatric: Reports no additional psychiatric complaints Allergic/Immunologic: Allergic/Immunologic: Reports no additional allergic/immunologic complaints [facility] Past Medical History Medical History PIH ( induced hypertension) Family History Family History Mother Diabetes mellitus Grandparent Hypertension Grandparent Lung cancer Social History Social History Smoking status: Former smoker Second hand tobacco smoke exposure: No Substance use: never Gender identity (if verbalized by the patient): Female Sexual Orientation (if Verbalized by the Patient): Straight or Heterosexual Spiritual care concerns: No Comments At the time of my signature, I reviewed and agree with the nursing past medical, surgical, social, and family history. There is no relevant family history pertinent to the patient complaint. Exam Const: General: cooperative, healthy appearing, comfortable, no acute distress, well developed, alert and well nourished Nutritional Appearance: well nourished Orientation/consciousness: patient oriented x3 Limitations: no limitations HENMT: Head: normal to inspection Ears: hearing grossly normal bilaterally and external ears normal Face/Nose/Sinus: Normal external nose present, Normal nares present, Normal nasal mucous membranes and turbinates present and normal facial exam Face and sinus: normal facial exam Mouth: Yes Normal oral and palatal mucosa present, Yes lip normal and Yes moist mucous membranes Throat: posterior oropharynx normal, uvula midline, postnasal drainage and no uvular edema Eyes: General: appearance normal, both eyes and all related structures Alignment and Position: alignment normal Periorbital: periorbital findings normal Conjunctivae: conjunctivae normal Pupils: Equal, round and reactive pupils present EOM: EOMs intact bilaterally Neck: Neck: normal visual insp
[2022-12-02 11:41] VITALS: BP 138/99; PULSE 100; RESP 16; TEMP 36.5; O2SAT 97
== END 2022-12-02 11:59 | disposition home or self-care (01) ==
PROVIDERS: Emergency Provider Nurse Practitioner; PCP Family Medicine
DX: J02.9 Acute pharyngitis, unspecified (principal); R09.82 Postnasal drip; Z87.891 Personal history of nicotine dependence
CPT/HCPCS: 87081; 87880; 99213; G0463

== ENCOUNTER 2022-12-23 12:06 | Emergency (ER) | payer OTHER, SELFPAY ==
[2022-12-23 12:15] VITALS: BP 130/67; PULSE 100; RESP 16; TEMP 37.3; O2SAT 97
--- NOTE | 2022-12-23 12:39 | ED.URI ---
HPI - URI/Sore Throat General Chief Complaint: Upper Respiratory Infection Stated Complaint: Bodyaches/SOB Time Seen by Provider: 12/23/22 12:40 Source: patient, RN notes reviewed and old records reviewed Mode of arrival: ambulatory Limitations: no limitations History of Present Illness HPI Narrative: 22 year old female presents to the [facility] with complaints of body aches productive cough with thick sputum. Shortness of breath with cough, nasal congestion. Patient states symptoms started Friday, 3 days ago Unknown his having a fever but has had chills Denies chest pain. Denies abdominal pain. States it feels like she has the flu Onset (ago): day(s) (3) Related Data Home Medications Medication Instructions Recorded Confirmed escitalopram oxalate 20 mg tablet 20 mg PO DAILY 12/02/22 12/23/22 semaglutide 1 mg/dose (4 mg/3 mL) 1 mg subcut WEEKLY 12/02/22 12/23/22 subcutaneous pen injector (Ozempic) levonorgestrel 20 mcg/24 hours (8 1 device intrauterine ONCE 12/23/22 12/23/22 yrs) 52 mg intrauterine device (Mirena) Allergies Allergy/AdvReac Type Severity Reaction Status Date / Time No Known Allergies Allergy Verified 12/23/22 12:20 Review of Systems Review of Systems: All systems reviewed & are unremarkable except as noted in HPI and below Constitutional: Constitutional: Reports no additional constitutional complaints Eyes: Eyes: Reports no additional eye complaints ENT: Reports as per HPI Cardiovascular: Cardiovascular: Reports no additional cardiovascular complaints, Denies chest pain and Denies dyspnea Respiratory: Respiratory: Reports as per HPI, Denies chest congestion, Reports cough, Reports dyspnea and Denies wheezing Gastrointestinal: Gastrointestinal: Reports no additional gastrointestinal complaints, Denies abdominal pain, Denies nausea and Denies vomiting Musculoskeletal: Musculoskeletal: Reports no additional musculoskeletal complaints Integumentary/Breasts: Skin/Breast: Reports system reviewed and no additional complaints, except as docu Neurologic: Reports system reviewed and no additional complaints, except as documented Psychiatric: Psychiatric: Reports no additional psychiatric complaints Allergic/Immunologic: Allergic/Immunologic: Reports no additional allergic/immunologic complaints PMF[facility] Past Medical History Medical History PIH ( induced hypertension) Family History Family History Mother Diabetes mellitus Grandparent Hypertension Grandparent Lung cancer Social History Social History Smoking status: Former smoker Second hand tobacco smoke exposure: No Substance use: never Gender identity (if verbalized by the patient): Female Sexual Orientation (if Verbalized by the Patient): Straight or Heterosexual Spiritual care concerns: No Comments At the time of my signature, I reviewed and agree with the nursing past medical, surgical, social, and family history. There is no relevant family history pertinent to the patient complaint. Exam Const: General: cooperative, healthy appearing, comfortable, no acute distress, well developed, alert and well nourished Nutritional Appearance: well nourished Orientation/consciousness: patient oriented x3 Limitations: no limitations HENMT: Head: normal to inspection Ears: hearing grossly normal bilaterally and external ears normal Face/Nose/Sinus: Normal external nose present, Normal nares present, Normal nasal mucous membranes and turbinates present and normal facial exam Face and sinus: normal facial exam Mouth: Yes Normal oral and palatal mucosa present, Yes lip normal and Yes moist mucous membranes Throat: posterior oropharynx normal and uvula midline Eyes: General: appearance normal, both eyes and all related structures Alignment and Position:
== END 2022-12-23 13:08 | disposition home or self-care (01) ==
PROVIDERS: Emergency Provider Nurse Practitioner; PCP Family Medicine
DX: B34.9 Viral infection, unspecified (principal); Z20.822 Contact with and (suspected) exposure to COVID-19; Z87.891 Personal history of nicotine dependence
CPT/HCPCS: 87426; 87804; 99213; C9803; G0463

== ENCOUNTER 2023-11-16 14:07 | Emergency (ER) | payer OTHER, SELFPAY ==
[2023-11-16 14:23] VITALS: BP 131/73; PULSE 91; RESP 16; TEMP 37.1; O2SAT 99
--- NOTE | 2023-11-16 14:27 | ED.LOWEXIN ---
HPI - Extremity Injury (Lower) General Chief Complaint: Extremity Problem,Nontraumatic Stated Complaint: right ankle pain Time Seen by Provider: 11/16/23 14:55 Source: patient and RN notes reviewed Mode of arrival: ambulatory Limitations: no limitations History of Present Illness HPI Narrative: 23 year old female presents with concern of for right ankle pain. She reports she had been having intermittent mild pain for 2 months. She reports after she moved recently and was very active she began having much worse pain that is constant causing her pain at when bearing weight. She reports she has tried ibuprofen without relief. She denies redness, warmth, swelling, decreased strength, range of motion. She reports that is not very painful at rest but is painful to bear weight. MD complaint: other (Ankle Pain) Related Data Home Medications Medication Instructions Recorded Confirmed escitalopram oxalate 20 mg tablet 20 mg PO DIRECTED 11/16/23 11/16/23 famotidine 20 mg tablet 20 mg PO DIRECTED 11/16/23 11/16/23 norethindrone 1 mg-ethinyl 1 tablet PO DIRECTED 11/16/23 11/16/23 estradiol 20 mcg (21)-iron 75 mg (7) tablet (Aurovela Fe 1-20 (28)) Allergies Allergy/AdvReac Type Severity Reaction Status Date / Time No Known Allergies Allergy Verified 11/16/23 14:27 Review of Systems Review of Systems: CONSTITUTIONAL: Denies malaise, chills, sweats, or fever. SKIN: Denies rash or itching, open skin, laceration, abrasion, redness, warmth, swelling. MUSCULOSKELETAL: Reports right ankle pain NEUROLOGIC: Denies numbness, weakness All systems reviewed & are unremarkable except as noted in HPI and below PMFSH Past Medical History Medical History PIH ( induced hypertension) Family History Family History Mother Diabetes mellitus Grandparent Hypertension Grandparent Lung cancer Social History Social History Smoking status: Former smoker Second hand tobacco smoke exposure: No Substance use: never Gender identity (if verbalized by the patient): Female Sexual Orientation (if Verbalized by the Patient): Straight or Heterosexual Spiritual care concerns: No Comments At time of signature, agree with nursing past medical, surgical, social and family history. There is no relevant family history pertinent to the presenting complaint Exam Narrative: GENERAL: Well-appearing, well-nourished, and in no acute distress. HEAD: Normocephalic, atraumatic. EYES: PERRLA, conjunctivae clear NECK: Supple. CHEST: Speaks in full sentences. No respiratory distress. HEART: Regular rate and rhythm. Normal and equal peripheral pulses. EXTREMITIES: Right ankle, foot, digits have grossly normal strength and sensation, normal range of motion. No edema or ecchymosis. 5/5 strength with ankle in digit flexion and extension. Normal sensation with sensitivity to light touch and pain. No point tenderness. No open wounds, no skin tenting, no devitalized tissue or atrophy, no trophic changes, no obvious deformity, alignment normal, nearby joints and structures intact. Distal pulses palpable and equal bilaterally, skin warm, dry, pink. Capillary refill less than 3 seconds. SKIN: Warm, dry, no rash. NEURO: Alert and oriented x3. PSYCH: Normal mood and affect Course Course Emergency Course: Patient is aware of diagnosis, understands and agrees to treatment plan. Anticipatory guidance given. Patient agrees to follow-up as directed and is aware of reasons to seek care at the emergency department. Portions of this record may have been created with voice recognition software Level of Care: Express Care Visit Vital Signs Vital signs: Vital Signs Temperature 98.7 F 11/16/23 14:23 Pulse Rate 91 11/16/23 14:23 Respiratory Rate 16 11/16/23 14:23 B
== END 2023-11-16 15:18 | disposition home or self-care (01) ==
PROVIDERS: Emergency Provider Nurse Practitioner; PCP Family Medicine
DX: M25.571 Pain in right ankle and joints of right foot (principal); Z87.891 Personal history of nicotine dependence
CPT/HCPCS: 99212; G0463

== ENCOUNTER 2024-06-29 10:27 | Outpatient (CLI) | payer OTHER, SELFPAY ==
--- NOTE | ~2024-06-29 | US_ITS ---
US breast LT limited 06/29/2024 10:58 Indication: Palpable left breast mass. Procedure: High-resolution Limited ultrasound of the left breast Comparison: Comparison ultrasound dated 01/10/2022 Findings: There is a mass in the left breast at 1:00, 7 cm from parallel orientation, lobulated zoe ns, posterior acoustic shadowing and marginal vascularity. This mass measures 1.3 x 1.3 x 1 cm. Impression: 1: Irregular shaped 1.3 cm left breast mass at 1:00, with 7 cm from the nipple. BI-RADS CATEGORY 4-SUSPICIOUS ABNORMALITY RECOMMENDATION: Ultrasound-guided left breast biopsy recommended. Reviewed, dictated and finalized at location B. Impression: 1: Irregular shaped 1.3 cm left breast mass at 1:00, with 7 cm from the nipple. BI-RADS CATEGORY 4-SUSPICIOUS ABNORMALITY RECOMMENDATION: Ultrasound-guided left breast biopsy recommended.
== END 2024-06-29 10:28 | disposition home or self-care (01) ==
PROVIDERS: PCP Family Medicine; Visit Provider Advanced Practice Midwife
DX: N63.20 Unspecified lump in the left breast, unspecified quadrant (principal); R92.8 Other abnormal and inconclusive findings on diagnostic imaging of breast
CPT/HCPCS: 76642

== ENCOUNTER 2024-07-28 06:43 | Outpatient (CLI) | payer OTHER, SELFPAY ==
--- NOTE | ~2024-07-28 | MR_ITS ---
MRI of the brain Clinical History: Migraine headache Technique: Axial and sagittal T1-weighted images were acquired. These were followed by axial T2-weigh briseyda, diffusion weighted, gradient, and FLAIR images. Following intravenous administration of 19 cc Mu ltiHance gadolinium, T1-weighted fat-sat imaging was performed in the axial and coronal planes. Findings: There is no abnormal signal in the brain parenchyma. No acute infarct, intracranial hemorrh age, or mass lesion identified. Ventricles and subarachnoid spaces are unremarkable. Orbits are unremarkable. Paranasal sinuses and m astoid air cells are clear. Major intracranial flow voids are intact. Sagittal midline structures are intact. No abnormal postcontrast enhancement identified. IMPRESSION: Unremarkable exam. Reviewed, dictated and finalized at location M. IMPRESSION: Unremarkable exam.
== END 2024-07-28 06:44 | disposition home or self-care (01) ==
PROVIDERS: PCP Physician Assistant; Visit Provider Physician Assistant
DX: G43.909 Migraine, unspecified, not intractable, without status migrainosus (principal)
CPT/HCPCS: 70553; A9577